=== PATIENT | male | born 1955 | race Caucasian/White ===

== ENCOUNTER 2021-12-13 21:24 | Inpatient (IN) ==
[2021-12-13] MEDS ORDERED: SODIUM CHLORIDE 0.9% 500 ML IV STA (21:31)
[2021-12-13] MEDS ORDERED: ONDANSETRON INJ 2 MG/ML 2 ML VIAL IV STA (21:31)
[2021-12-13] MEDS ORDERED: MoRPHine SULFATE 4 MG/ML 1 ML CARP\\VIAL IV PRN (21:31)
--- NOTE | 2021-12-13 21:35 | Emergency Department Note ---
Impression & Plan Closed fracture of left hip, Fall ED Provider Note NAME: MARLENY TUCKER AGE: 66 SEX: M : 1955 ARRIVES VIA: Ambulance INFORMANT: Patient, ED PROVIDER(S): Gio Biggs DO CHIEF COMPLAINT: Hip pain HPI: The patient is a 66-year-old male who presented to emergency department by ambulance for an evaluation of hip pain. Patient fell down 2 steps when he was walking into his basement. He landed onto his left side. He was unable to stand because of severe pain in his left hip. He denies having any other injury. He did not strike his head. He denies having any neck pain or back pain. He denies having any numbness in the leg. He states he is never hurt this leg in the past. The patient states that he has had no other injuries. He did not have syncope. The patient was brought to the emergency department via ALS. He was placed on a Casiano stretcher. He was also placed in a pelvic binder. The patient states that this significantly helped his pain. He did receive IV fluids prior to arrival. ROS: See above HPI for pertinent positives & negatives. A total of 10 systems reviewed and were otherwise negative. PAST MEDICAL HISTORY: See Below PAST SURGICAL HISTORY: See Below FAMILY HISTORY: See Below SOCIAL HISTORY: See Below HOME MEDICATIONS: See Below ALLERGIES: See Below VITALS: See Below PHYSICAL EXAMINATION: GENERAL: The patient is awake and alert. The patient is very anxious appearing. EYES: The conjunctivae are clear. The pupils are round and reactive. EARS, NOSE, MOUTH AND THROAT: The nose is without any evidence of any deformity. NECK: The neck is nontender and supple. RESPIRATORY: Normal respiratory effort is noted there is no evidence of wheezing rhonchi or rales CARDIOVASCULAR: Regular rate and rhythm noted there no murmurs rubs or gallops normal S1 normal S2. GASTROINTESTINAL: The abdomen is soft. Abdomen is nontender. BACK: No midline tenderness or or step-off noted range of motion in flexion extension as well as rotation no signs of muscle spasm noted MUSCULOSKELETAL/EXTREMITIES: The left hip is significantly tender to palpation. Left lower extremity is internally rotated and shortened. Pulses are symmetric in both feet. SKIN: There is no obvious evidence of any rash. There are no petechiae, pallor or cyanosis noted. NEUROLOGIC: Patient is awake alert and oriented x3. MEDICAL DECISION MAKING: The patient is a 66-year-old male who presented to the emergency department after a fall. The patient was walking down the steps when he fell landing on a step. He landed directly on his left hip. He was found to have signs of a subtrochanteric displaced hip fracture. He was treated with IV pain medication in the emergency department. He was reevaluated multiple times. I discussed t he patient's laboratory and radiographic studies with him. I also discussed his case with the on-call [facility]. They have agreed to evaluate the patient in the emergency department for further management and disposition. Likely the patient will require evaluation by orthopedic surgery for surgical management of this hip fracture. Triage Nursing notes reviewed. Prior medical records reviewed Vital Signs: reviewed and remarkable for elevated blood pressure. Differential diagnosis: Fracture, subluxation, dislocation, contusion, ligamentous injury, neurovascular, compartment syndrome, rhabdomyolysis, as well as other pathologies. ER treatment provided: See below Diagnostics interpreted by me: ECG: EKG was obtained in the emergency department. My interpretation is normal sinus rhythm at 88 bpm. There is no ectopy. There is no acute ST segment abnormalities noted. No previous tracing was available. Cardiac Monitoring: An order was placed for continuous cardiac monitoring. The monitor shows a rate of 91 bpm with sinus rhythm. Laboratory studies: As stated above and show below. Imaging studies: See below Consultation(s): I discussed this case with Dr. Daly who is on-call for the [facility] group. I discussed this case with Dr Noe who was numerical control drill press operator for [facility]. 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 (2/2 trauma) History of ankle surgery RT History of cholecystectomy History of colonoscopy History of esophagogastroduodenoscopy (EGD) History of herniorrhaphy INGUINAL History of open reduction and internal fixation (ORIF) procedure RT TIB/FIB Family History Other No significant family history Social History Smoking Status: Current every day smoker Tobacco Type: Cigarettes Cigarettes Per Day: 8 cigars daily/hx of tobacco x 30+ years; Second Hand Exposure: No; Hx Alcohol Use: Yes Alcohol type: beer Hx Substance Use: Yes Last Used Substance Other:: LAST USED YESTERDAY(ADVISED) Preferred Language: Samoan Communication Ability: Effective Cook Relief Required: No Beliefs That Will Affect Care: None marital status: Current Living Situation: Spouse current occupational status: employed Feels Safe at Home: Yes Assistive Devices: Glasses Allergies Allergies Allergy/AdvReac Type Severity Reaction Status Date / Time No Known Allergies Allergy Verified 10/30/19 09:17 Home Meds Home Medications Medication Instructions Recorded Confirmed finasteride 5 mg tablet 5 mg PO HS 10/14/19 11/12/19 lisinopril 20 mg tablet 20 mg PO HS 10/14/19 11/12/19 tamsulosin 0.4 mg capsule 0.4 mg PO HS 10/14/19 11/12/19 Results & Data (ED) Vital Signs Vital Signs - 24 hr 12/13/21 22:30 12/13/21 23:10 Temperature 37.0 C Temperature Source Oral Pulse Rate 88 92 H Respiratory Rate 20 20 Respiratory Effort / Characteristics Non-Labored Respiratory Depth Normal Blood Pressure 134/91 Blood Pressure Mean 105 Blood Pressure Position Lying Pulse Oximetry 98 98 Oxygen Delivery Method Room Air Room Air Sepsis Recent Fever Within 48 Hours No Sepsis New/Unexplained Change in Mental Status No Sepsis Action Taken by Nursing No Action Required Home Medications Current Medication List: was personally reviewed by me Laboratory Data Attestation: I reviewed the patient's lab results. Result diagrams: 12/13/21 Unknown 12/13/21 22:50 Lab Results 12/13/21 12/13/21 12/13/21 Range/Units 21:43 22:50 Unknown WBC 13.44 H (4.8-10.8) K/uL RBC 4.91 (4.7-6.1) M/uL Hgb 15.6 (14.0-18.0) g/dL Hct 44.1 (42-52) % MCV 89.8 (80-100) fL MCH 31.8 (25-34) pg MCHC 35.4 (32-36) g/dL RDW Std Deviation 47.9 H (36.4-46.3) fL RDW Coeff of Svetlana 14.7 H (11.5-14.5) % Plt Count 413 H (130-400) K/uL MPV 9.7 (7.4-10.4) fL Immature Gran % (Auto) 0.4 % Neut % (Auto) 75.1 % Lymph % (Auto) 14.2 % Dauphin % (Auto) 7.7 % Eos % (Auto) 2.2 % Baso % (Auto) 0.4 % Neut # (Auto) 10.10 H (1.4-6.5) K/uL Lymph # (Auto) 1.91 (1.2-3.4) K/uL Dauphin # (Auto) 1.03 H (0.11-0.59) K/uL Eos # (Auto) 0.29 (0-0.5) K/uL Baso # (Auto) 0.06 (0-0.2) K/uL Immature Gran # (Auto) 0.05 H (0.00-0.02) K/uL PT (9.0-12.0) Seconds INR (0.9-1.1) APTT (21.0-31.0) Seconds PTT Ratio Sodium 137 (136-145) mmol/L Potassium 3.9 (3.5-5.1) mmol/L Chloride 105 (98-107) mmol/L Carbon Dioxide 27 (21-32) mmol/L Anion Gap 5 (3-11) BUN 19 (6-23) mg/dl Creatinine 0.92 (0.6-1.4) mg/dl Est Cr Clr Drug Dosing 83.8 ml/min Est GFR ( Amer) 101.5 ml/min Est GFR (Non-Af Amer) 87.6 ml/min BUN/Creatinine Ratio 20.7 H (10-20) Glucose 115 H (70-99(Fasting)) mg/dl Calcium 8.6 (8.5-10.1) mg/dl Total Bilirubin 0.4 (0.2-1.0) mg/dl AST 26 (13-39) U/L ALT 21 (7-52) U/L Alkaline Phosphatase 156 H (34-104) U/L Troponin I < 0.03 (0-0.04) ng/ml Total Protein 6.2 (6.0-8.3) gm/dl Albumin 3.7 (3.4-5.0) gm/dl Globulin 2.5 (2.5-4.0) gm/dl Albumin/Globulin Ratio 1.5 (0.9-2) Lipase 100 H (11-82) U/L SARS-CoV-2, RNA, NAAT NEGATIVE (NEGATIVE) 12/13/21 Range/Units Unknown WBC (4.8-10.8) K/uL RBC (4.7-6.1) M/uL Hgb (14.0-18.0) g/dL Hct (42-52) % MCV (80-100) fL MCH (25-34) pg MCHC (32-36) g/dL RDW Std Deviation (36.4-46.3) fL RDW Coeff of Svetlana (11.5-14.5) % Plt Count (130-400) K/uL MPV (7.4-10.4) fL Immature Gran % (Auto) % Neut % (Auto) % Lymph % (Auto) % Dauphin % (Auto) % Eos % (Auto) % Baso % (Auto) % Neut # (Auto) (1.4-6.5) K/uL Lymph # (Auto) (1.2-3.4) K/uL Dauphin # (Auto) (0.11-0.59) K/uL Eos # (Auto) (0-0.5) K/uL Baso # (Auto) (0-0.2) K/uL Immature Gran # (Auto) (0.00-0.02) K/uL PT 9.7 (9.0-12.0) Seconds INR 1.0 (0.9-1.1) APTT 25.2 (21.0-31.0) Seconds PTT Ratio 1.0 Sodium (136-145) mmol/L Potassium (3.5-5.1) mmol/L Chloride (98-107) mmol/L Carbon Dioxide (21-32) mmol/L Anion Gap (3-11) BUN (6-23) mg/dl Creatinine (0.6-1.4) mg/dl Est Cr Clr Drug Dosing ml/min Est GFR ( Amer) ml/min Est GFR (Non-Af Amer) ml/min BUN/Creatinine Ratio (10-20) Glucose (70-99(Fasting)) mg/dl Calcium (8.5-10.1) mg/dl Total Bilirubin (0.2-1.0) mg/dl AST (13-39) U/L ALT (7-52) U/L Alkaline Phosphatase (34-104) U/L Troponin I (0-0.04) ng/ml Total Protein (6.0-8.3) gm/dl Albumin (3.4-5.0) gm/dl Globulin (2.5-4.0) gm/dl Albumin/Globulin Ratio (0.9-2) Lipase (11-82) U/L SARS-CoV-2, RNA, NAAT (NEGATIVE) Administered Medications Morphine Sulfate (Morphine Sulfate 4 Mg/Ml 1 Ml Carp\Vial) 4 mg IV Q30M PRN PRN Reason: Pain Stop: 12/27/21 21:30 Last Admin: 12/13/21 21:49 Dose: 4 mg Documented by: [id number] Discontinued Medications Sodium Chloride (Nss) 500 mls @ 999 mls/hr IV .Q31M STA Stop: 12/13/21 22:01 Last Infusion: 12/13/21 22:20 Dose: 0 mls/hr Documented by: [id number] Admin: 12/13/21 21:49 Dose: 999 mls/hr Documented by: [id number] Ondansetron HCl (Ondansetron Inj 2 Mg/Ml 2 Ml Vial) 4 mg IV NOW STA Stop: 12/13/21 21:32 Last Admin: 12/13/21 21:50 Dose: 4 mg Documented by: [id number] Imaging Data Attestation: I personally reviewed and interpreted this imaging study as follows: My Impression: 1 view chest x-ray was obtained in the emergency department. My interpretation is no free air no definite infiltrate. The radiograph is rotated significantly. The aorta was noted to be tortuous. This was a supine view. This was compared to a chest x-ray from October 222018. The positioning was different on the previous chest x-ray otherwise no definite changes were noted. X-rays x-rays of the left hip and pelvis were obtained in the emergency department. My interpretation is no definite pelvic fracture. Right hip is normal in appearance. Left hip reveals a subtrochanteric fracture with displacement and angulation. Discharge Plan Visit Data Chief Complaint: Fall Stated Complaint: FALL w/ L HIP PAIN - SHORTENING ROTATION ED Provider: Gio Biggs Discharge Problem: Closed fracture of left hip, Fall Patient Disposition: Being Evaluated by Hospitalist Forms Stand Alone Forms: My [facility] Prescriptions Prescriptions: No Action finasteride 5 mg tablet 5 mg PO HS RF: 0 lisinopril 20 mg tablet 20 mg PO HS RF: 0 tamsulosin 0.4 mg capsule 0.4 mg PO HS RF: 0 Referrals Referrals: Baron Vidal [Primary Care Provider] - Discharge Problem: Closed fracture of left hip Qualifiers: Encounter type: initial encounter Qualified Code(s): S72.002A - Fracture of unspecified part of neck of left femur, initial encounter for closed fracture Fall Qualifiers: Encounter type: initial encounter Qualified Code(s): W19.XXXA - Unspecified fall, initial encounter
[2021-12-13 21:41] LABS: Basophils # (auto) 0.06 K/uL (0-0.2); Basophils % (auto) 0.4 %; Eosinophils # (auto) 0.29 K/uL (0-0.5); Eosinophils % (auto) 2.2 %; Hematocrit (blood only) 44.1 % (42-52); Hemoglobin 15.6 g/dL (14.0-18.0); Immature Granulocytes # (auto) 0.05 K/uL (0.00-0.02); Immature Granulocytes % (auto) 0.4 %; Lymphocytes # (auto) 1.91 K/uL (1.2-3.4); Lymphocytes % (auto) 14.2 %; Mean Corpuscular Hemoglobin 31.8 pg (25-34); Mean Corpuscular Hgb Conc 35.4 g/dL (32-36); Mean Corpuscular Volume 89.8 fL (80-100); Mean Platelet Volume 9.7 fL (7.4-10.4); Monocytes # (auto) 1.03 K/uL (0.11-0.59); Monocytes % (auto) 7.7 %; Neutrophils % (auto) 75.1 %; Platelet Count 413 K/uL (130-400); RDW Coefficient of Variation 14.7 % (11.5-14.5); RDW Standard Deviation 47.9 fL (36.4-46.3); Red Blood Count 4.91 M/uL (4.7-6.1); White Blood Count 13.44 K/uL (4.8-10.8)
[2021-12-13 21:54] LABS: Partial Thromboplastin Time 25.2 Seconds (21.0-31.0); Prothrombin Time 9.7 Seconds (9.0-12.0)
--- NOTE | 2021-12-13 22:53 | History & Physical Report ---
Date of Service December 13, 2021 Assessment & Plan (1) Closed fracture of left hip: Plan: Status post fall down basement stairs landing on left side, resulting in subtrochanteric oblique appearing fracture of the left hip Consult orthopedics: Appreciate insight, recommendations with regards to reduction/fixation PT OT consulted Order vitamin D level Monitor CBC Insert Velazquez catheter ED provider spoke with on-call orthopedic physician, Dr. Noe, who said plan for procedure in a.m. N.p.o. now Pain: Tylenol 1g q8h, dilaudid 0.5mg IV q4h PRN until post procedure Based on mechanism of the fall, does not overtly appear to be a fragility fracture. Can consider DEXA as outpatient -- though no obvious risk factors for osteoporosis in this 66yoM. (2) High blood pressure: Plan: Blood pressure stable at this time, no evidence of acute blood loss anemia on labs Hold losartan for now given perioperative status (3) BPH without urinary obstruction: Plan: Noted, follows with [facility] Status post TURP in 2019 Is not on any home medications for this at present Check UA, as below (4) COPD (chronic obstructive pulmonary disease): Plan: With reported history of COPD per patient and his Continue home inhaler while here No active features of a COPD exacerbation at present (5) MDD (major depressive disorder): Plan: Continue home medications, managed by local psychiatrist --Prozac, olanzapine, perphenazine (6) Confusion: Plan: At the bedside, patient's reports that he has been somewhat more low energy and intermittently confused over the last several days; she also notes that he is fallen over the last couple days In the past, she says that this is been consistent with UTI for him per Patient was fully alert and oriented, answered questions appropriately throughout her discussionno evidence of encephalopathy at my time of exam CBC is revealing for mild leukocytosis in the setting of recent hip fracture Obtain BMP, urinalysis as well as urine culture Chest x-ray not revealing for any infectious process Given recent falls over the last several days, as well as endorsing that he hit his head during today's fall, will obtain noncontrast head CT Hold from antibiotics at this time until clinical picture is clear, urinalysis/BMP is obtained PT, OT ordered as aboveappreciate any incident recommendations moving forward after discharge Plan: Code: DNR/DNIconfirmed at the bedside with both patient and PPX: SCDs until procedure Diet: NPO for procedure tomorrow Dispo: MS History of Present Illness Primary Care Provider: Baron Huston is a 66-year-old male with a history of HTN, BPH, COPD, MDD who presented to [facility] following a fall down 2 icy steps onto his left side. He noted that because of the pain, he was having difficulty getting up and was unable to walk. He said he hit his head, but "it didn't hurt" and denies LOC. In route, he was put into a pelvic binder, which aided with some of his pain. In speaking with his , who is at the bedside, she notes that patient has been reportedly more confusedappearing over the last several days; she notes that he has fallen several times, which is not typical for him. She says that this is happened in the past when he has gotten UTI. They deny any fevers, chills, night sweats. Denies any nausea or vomiting. Denies any urinary symptoms, including dysuria/frequency/urgency. No pulmonary or chest symptoms. No recent or major changes in medications. Medications were reviewed, which include: losartan, wingspan, fluoxetine, Wellbutrin, perphenazine, Symbicort. Socially, he does endorse utilizing about half a pack per day "for as long as I can remember." He was treated for COPD and uses Symbicort daily; there is recently been discussions to upgrade this to another inhaler. Denies any recent or past use of alcohol. Denies any use of any recreational drugs. Upon arrival in the ER, vital signs were found to be normal with HR in low 90s. Laboratories were significant for a mildly elevated white count to 13.4 with neutrophilic predominance but no evidence of anemia, BMP normal. ALP mildly el evated at 156. Lipase noted at 100. INR normal -- not on anticoagulation. X-ray of the hip did demonstrate a dislocated, oblique-appearing subtrochanteric fracture of the left femur. Chest x-ray was not significant for any acute abnormalities. Covid negative. Emergency provider spoke with the on-call orthopedist, who did indicate hey will proceed with the surgery likely tomorrow. Allergies Allergy/AdvReac Type Severity Reaction Status Date / Time No Known Allergies Allergy Verified 12/14/21 00:15 Home Medications Medication Instructions Recorded Confirmed Type budesonide-formoterol HFA 160 2 puff INHALATION BID 12/14/21 12/14/21 History mcg-4.5 mcg/actuation aerosol inhaler (Symbicort) bupropion HCl 300 mg 24 hr tablet, 300 mg PO QAM 12/14/21 12/14/21 History extended release fluoxetine 20 mg capsule 60 mg PO DAILY 12/14/21 12/14/21 History losartan 25 mg tablet 0 mg PO DAILY 12/14/21 12/14/21 History olanzapine 10 mg tablet 10 mg PO HS 12/14/21 12/14/21 History perphenazine 16 mg tablet 8 mg PO HS 12/14/21 12/14/21 History 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 (2/2 trauma) History of ankle surgery RT History of cholecystectomy History of colonoscopy History of esophagogastroduodenoscopy (EGD) History of herniorrhaphy INGUINAL History of open reduction and internal fixation (ORIF) procedure RT TIB/FIB Family History Other No significant family history Social History Smoking Status: Current every day smoker Tobacco Type: Cigarettes Cigarettes Per Day: 1/2 ppd; Second Hand Exposure: No; Do You Dip or Chew Tobacco: No; Tobacco Cessation Education Requested by Patient: No Hx Alcohol Use: No Hx Substance Use: No Preferred Language: Namibian Communication Ability: Effective Aerial Erector Required: No Beliefs That Will Affect Care: None marital status: Current Living Situation: Spouse current occupational status: employed How many Children do You have: 2 Other Information That Helps Us Care for You: No Feels Safe at Home: Yes Safety Concerns: Feels Safe At This Time Assistive Devices: None Review of Systems Review of Systems: as per hpi Physical Exam Physical Exam: General: Tired but well-appearing 66-year-old gentleman no acute distress HEENT: NCAT. - Eyes - Sclera are white, anicteric, and without injection. PERRL. - Mouth - MMM with no tonsillar edema or exudates. - Neck - supple and without LAD. Thyroid - no appreciable goiter or nodules. Cardiac: Normal rate and regular rhythm; S1 and S2 present with no murmurs, rubs, or gallops. Pulmonary: Good respiratory effort with symmetric expansion of the chest. No use of accessory muscles. Lungs were clear to auscultation bilaterally with no crackles or wheezes. Abdominal: Normoactive bowel sounds. Abdomen was soft, nondistended, and non- tender to palpation. Extremities: Hip is in a brace at this time. There is protuberance appreciated over the left hip but is not associated with any pain. Ankle and toe range if motion are full. Sensation to light touch is grossly intact bilaterally. Dorsalis pedis pulse 2+ bilaterally. Capillary refill under 3 seconds. Psych: Well-developed, well-nourished, appropriately dressed for occasion. Behavior is cooperative and appropriate. Affect is WNL. Insight is appropriate. Supervising Physician Co-Signing Physician Notes Patient seen and examined, chart reviewed, case discussed with Dr. Clark and I agree with the assessent and plan as above. Patient fell, sustained left proximal femur fracture with subtrochanteric extension NV intact on exam. No bruising Pain control, antiemetics NPO Ortho consultation for repair Remainder as above Resident Activity Tracking Resident Involvement: Resident Care Provided Care Provided: Adult Hospital Medicine (1) Closed fracture of left hip Encounter type: initial encounter Qualified Code(s): S72.002A - Fracture of unspecified part of neck of left femur, initial encounter for closed fracture
[2021-12-13] MEDS ORDERED: ACETAMINOPHEN 1000 MG/100 ML IV IV PRN (23:11)
[2021-12-13 23:24] LABS: Alanine Aminotransferase 21 U/L (7-52); Albumin Globulin Ratio 1.5 (0.9-2); Albumin Level 3.7 gm/dl (3.4-5.0); Alkaline Phosphatase 156 U/L (34-104); Anion Gap 5 (3-11); Aspartate Aminotransferase 26 U/L (13-39); BUN Creatinine Ratio 20.7 (10-20); Bilirubin,Total 0.4 mg/dl (0.2-1.0); Blood Urea Nitrogen 19 mg/dl (6-23); Calcium 8.6 mg/dl (8.5-10.1); Carbon Dioxide 27 mmol/L (21-32); Chloride 105 mmol/L (98-107); Creatinine Clr Calc Pharmacy 83.8 ml/min; Est GFR (African American) 101.5 ml/min; Est GFR (Non-African American) 87.6 ml/min; Globulin 2.5 gm/dl (2.5-4.0); Glucose 115 mg/dl (70-99(Fasting)); Lipase 100 U/L (11-82); Potassium 3.9 mmol/L (3.5-5.1); Sodium 137 mmol/L (136-145); Total Protein 6.2 gm/dl (6.0-8.3)
[2021-12-13 23:25] LABS: Troponin I < 0.03 ng/ml (0-0.04)
[2021-12-14] MEDS: HYDROmorphone INJ 0.5 MG/0.5 ML SYR IV PRN ×3 (00:19→20:42)
[2021-12-14 02:16] LABS: BUN Creatinine Ratio 20.6 (10-20); Calcium 8.6 mg/dl (8.5-10.1); Creatinine Clr Calc Pharmacy 79.4 ml/min; Est GFR (African American) 95.2 ml/min; Est GFR (Non-African American) 82.2 ml/min; Potassium 4.2 mmol/L (3.5-5.1)
[2021-12-14 06:24] LABS: Basophils # (auto) 0.03 K/uL (0-0.2); Basophils % (auto) 0.2 %; Eosinophils # (auto) 0.03 K/uL (0-0.5); Eosinophils % (auto) 0.2 %; Hematocrit (blood only) 36.6 % (42-52); Hemoglobin 12.8 g/dL (14.0-18.0); Immature Granulocytes # (auto) 0.06 K/uL (0.00-0.02); Immature Granulocytes % (auto) 0.5 %; Lymphocytes # (auto) 1.19 K/uL (1.2-3.4); Lymphocytes % (auto) 9.4 %; Mean Corpuscular Hemoglobin 31.2 pg (25-34); Mean Corpuscular Volume 89.3 fL (80-100); Mean Platelet Volume 9.4 fL (7.4-10.4); Monocytes # (auto) 1.26 K/uL (0.11-0.59); Monocytes % (auto) 9.9 %; Neutrophils # (auto) 10.15 K/uL (1.4-6.5); Neutrophils % (auto) 79.8 %; Platelet Count 338 K/uL (130-400); RDW Coefficient of Variation 14.8 % (11.5-14.5); RDW Standard Deviation 48.5 fL (36.4-46.3); White Blood Count 12.72 K/uL (4.8-10.8)
[2021-12-14 06:39] LABS: BUN Creatinine Ratio 20.2 (10-20); Calcium 8.5 mg/dl (8.5-10.1); Creatinine Clr Calc Pharmacy 71.8 ml/min; Est GFR (African American) 82.7 ml/min; Est GFR (Non-African American) 71.4 ml/min; Potassium 4.4 mmol/L (3.5-5.1)
[2021-12-14 06:46] LABS: Appearance Urine Cloudy (Clear); Bilirubin Urine Negative (Negative); Blood Urine 2+ (Negative); Color Urine Dark Yellow; Epithelial Cell Urine Auto 0-5 /lpf (0-5); Glucose Urine UA Negative (Negative); Ketones Urine Trace (Negative); Leukocyte Esterase Urine Trace (Negative); Nitrite Urine Positive (Negative); Protein Urine 1+ (Negative); Specific Gravity Urine 1.028 (1.000-1.030); Urobilinogen Urine Negative (Negative); WBC Urine Automated >30 /hpf (0-5); pH Urine 5.5 (4.5-7.5)
--- NOTE | 2021-12-14 06:49 | CT Scan Report ---
CT OF THE HEAD WITHOUT CONTRAST CLINICAL HISTORY: head trauma, recent falls at home, confusion COMPARISON STUDY: No previous studies for comparison. CT DOSE: 789.33 mGy.cm TECHNIQUE: Helical axial images of the head were obtained without IV contrast. Automated exposure con trol was utilized for the study. A dose lowering technique was utilized adhering to the principles o f ALARA. FINDINGS: No acute intracranial hemorrhage, midline shift or mass effect is present. White matter hyp odensity suggests small vessel disease. The ventricular system is unremarkable. The basal cisterns ar e patent. No extra-axial collections are present. There are no findings to suggest acute dural sinus thrombosis or acute territorial infarct. No significant calvarial abnormalities are present. Visualiz ed portions of the sinuses and mastoid air cells are clear. IMPRESSION: 1. No acute intracranial findings. 2. No acute calvarial fracture. ACT 112: Negative or not required by law. Electronically signed by: Mike Gifford M.D. 12/14/2021 6:47 AM
[2021-12-14 07:12] LABS: Mucus Urine Present (None Prsent)
[2021-12-14 07:14] LABS: Bacteria Urine Automated 1+ (Negative)
--- NOTE | 2021-12-14 07:44 | Medical Student Progress Note ---
Date of Service December 14, 2021 Assessment & Plan (1) Closed fracture of left hip: Plan: Betzaida is a 66 yo M with a history of COPD, HTN, BPH, MDD, who was transported to [facility] via ALS following a fall down 2 icy steps and landing on his left side.He received IV fluids prior to arrival. Unremarkable EKG, Head CT w/o contrast. X-ray Hip/Pelvis positive for closed fracture of L hip. (1) Closed fracture of left hip - status post fall 2 icy steps (+) landing on left side and hitting head (-) visible head trauma, LOC - X-ray Hip/Pelvis: L hip fracture with impaction and angulation - Ortho consult: Pt will require femoral nailing. Plan for surgery this evening. - Monitor CBC for internal bleeding - Pain: Acetaminophen 1g q8, Dilaudid 0.5mg IV q4h PRN until post procedure - Diet: NPO - Velazquez catheter - PT/OT ordered (2) Confusion - reported by ; she noted that pt has had decreased energy, increased confusion, and has fallen over the last couple days + stated that this is consistent with prior UTIs. - pt does not appear confused at this time - Unremarkable Head CT w/o contrast, Chest X-Ray - UA: Suspicious for UTI given cloudy, +nitrite, + leuk esterase, + WBC, + bacteria; culture still pending - In the setting of no current urinary sx, will not treat what appears to be asymptomatic bacteruria. (3) Dizziness - pt reports 2wk hx of dizziness upon standing up - Unremarkable. EKG, Head CT w/o contrast, Chest X-Ray - suspecting for orthostatic etiology; consider exacerbation by Olanzapine, Perphenazine, infection. - report of pt taking Tamsulosin, however pt reports he has not been taking this medication for some time. (4) COPD - continue Breo Ellipta, home inhaler (5) Hypertension - stable, 113/79 this AM - continue Losartan (6) BPH - not currently on medications - previously was on Finasteride and Tamsulosin, unsure why it was stopped. - Potentially related to dizziness episode. (7) MDD - continue home meds (olanzapine, fluoxetine, wellbutrin, perphenazine) Code: DNR/DNI DVT ppx: SCDs until procedure Diet: NPO for procedure Encounter type: initial encounter Qualified Code(s): S72.002A - Fracture of unspecified part of neck of left femur, initial encounter for closed fracture Admission and Anticipated Discharge Date Admission Date: December 13, 2021 Supervising Attestation Medical Student Supervision Note: I was personally present during medical student patient encounter and independently interviewed and examined the patient and verified the casillas history and physical, reviewed labs and image studies, discussed the case with Mariangel Chavez and agree with the findings and care plan. Mechanical fall with hip fracture - for repair later today. Anemia - ? sec to fracture. recheck stat h/h Recent h/o confusion, chronic indwelling catherter and abnormal UA - cloudy urine - start rocephin, while await culture. Chronic history of dizziness sec to orthostasis - monitor. vitamin D def - replace once taking PO Chronic COPD - stable on home meds. Subjective Patient was seen at bedside, resting comfortable. His pain is currently 4/10. Pt is aware of XRAY, CT results, and plan for surgery tomorrow. He did not appear confused, had good recall of events and answered all questions appropriately. He stated that he has started feeling dizzy/out of balance upon standing up, causing him to fall approx. 10x in the past couple of weeks. He denies syncope d uring these falls. Pt endorses one episode of emesis last night and headache (albeit typical for him). Otherwise, he denies SOB, dizziness, chest pain, nausea. Review of Systems Respiratory: no cough, no dyspnea and no wheezing Cardiovascular: no chest pain, no palpitations and no syncope Gastrointestinal: no abdominal pain and no nausea Physical Exam Respiratory: + prolonged expiratory phase Expiratory wheezes. Normal respiratory effort. Cardiovascular: RRR, no murmur, no edema Gastrointestinal (Abdomen): normal bowel sounds, soft, nontender, no hepatosplenomegaly Musculoskeletal: Shortened, externally rotated LLE. Normal ankle, toe ROM b/l. Ped pulses equal b/l. Psychiatric: A+Ox3, euthymic affect Results & Data ([facility]) Vital Signs (Past 12 Hours) Vital Signs Temp Pulse Pulse Resp BP BP Pulse Ox 12/14/21 01:25 124/86 12/14/21 00:45 36.3 C L 101 H 20 151/114 H 96 12/14/21 00:19 98 H 18 115/82 97 12/13/21 23:10 92 H 20 98 12/13/21 22:30 37.0 C 88 20 134/91 98 Laboratory Results 12/14/21 12/14/21 12/14/21 Range/Units 06:20 05:58 05:58 WBC (4.8-10.8) K/uL RBC (4.7-6.1) M/uL Hgb (14.0-18.0) g/dL Hct (42-52) % MCV (80-100) fL MCH (25-34) pg MCHC (32-36) g/dL RDW Std Deviation (36.4-46.3) fL RDW Coeff of Svetlana (11.5-14.5) % Plt Count (130-400) K/uL MPV (7.4-10.4) fL Immature Gran % (Auto) % Neut % (Auto) % Lymph % (Auto) % [place] % (Auto) % Eos % (Auto) % Baso % (Auto) % Neut # (Auto) (1.4-6.5) K/uL Lymph # (Auto) (1.2-3.4) K/uL [place] # (Auto) (0.11-0.59) K/uL Eos # (Auto) (0-0.5) K/uL Baso # (Auto) (0-0.2) K/uL Immature Gran # (Auto) (0.00-0.02) K/uL PT (9.0-12.0) Seconds INR (0.9-1.1) APTT (21.0-31.0) Seconds PTT Ratio Sodium (136-145) mmol/L Potassium (3.5-5.1) mmol/L Chloride (98-107) mmol/L Carbon Dioxide (21-32) mmol/L Anion Gap (3-11) BUN (6-23) mg/dl Creatinine (0.6-1.4) mg/dl Est Cr Clr Drug Dosing ml/min Est GFR ( Amer) ml/min Est GFR (Non-Af Amer) ml/min BUN/Creatinine Ratio (10-20) Glucose (70-99(Fasting)) mg/dl Calcium (8.5-10.1) mg/dl Total Bilirubin (0.2-1.0) mg/dl AST (13-39) U/L ALT (7-52) U/L Alkaline Phosphatase (34-104) U/L Troponin I (0-0.04) ng/ml Total Protein (6.0-8.3) gm/dl Albumin (3.4-5.0) gm/dl Globulin (2.5-4.0) gm/dl Albumin/Globulin Ratio (0.9-2) Lipase (11-82) U/L 25-OH Vitamin D Total (30-100) ng/ml Procalcitonin Pending Urine Color Dark Yellow Urine Appearance Cloudy A (Clear) Urine pH 5.5 (4.5-7.5) Ur Specific [place] 1.028 (1.000-1.030) Urine Protein 1+ H (Negative) Urine Glucose (UA) Negative (Negative) Urine Ketones Trace H (Negative) Urine Blood 2+ H (Negative) Urine Nitrite Positive A (Negative) Urine Bilirubin Negative (Negative) Urine Urobilinogen Negative (Negative) Ur Leukocyte Esterase Trace H (Negative) Urine WBC (Auto) >30 H (0-5) /hpf Urine RBC (Auto) 10-30 H (0-4) /hpf U Hyaline Cast (Auto) 5-10 H (0-5) /lpf U Epithel Cells (Auto) 0-5 (0-5) /lpf Urine Bacteria (Auto) 1+ H (Negative) Urine Mucus Present A (None Prsent) Urine Yeast Not Reportable Hepatitis C Ab Screen Pending SARS-CoV-2, RNA, NAAT (NEGATIVE) 12/14/21 12/14/21 12/14/21 Range/Units 05:58 05:58 05:58 WBC 12.72 H (4.8-10.8) K/uL RBC 4.10 L (4.7-6.1) M/uL Hgb 12.8 L (14.0-18.0) g/dL Hct 36.6 L (42-52) % MCV 89.3 (80-100) fL MCH 31.2 (25-34) pg MCHC 35.0 (32-36) g/dL RDW Std Deviation 48.5 H (36.4-46.3) fL RDW Coeff of Svetlana 14.8 H (11.5-14.5) % Plt Count 338 (130-400) K/uL MPV 9.4 (7.4-10.4) fL Immature Gran % (Auto) 0.5 % Neut % (Auto) 79.8 % Lymph % (Auto) 9.4 % [place] % (Auto) 9.9 % Eos % (Auto) 0.2 % Baso % (Auto) 0.2 % Neut # (Auto) 10.15 H (1.4-6.5) K/uL Lymph # (Auto) 1.19 L (1.2-3.4) K/uL [place] # (Auto) 1.26 H (0.11-0.59) K/uL Eos # (Auto) 0.03 (0-0.5) K/uL Baso # (Auto) 0.03 (0-0.2) K/uL Immature Gran # (Auto) 0.06 H (0.00-0.02) K/uL PT (9.0-12.0) Seconds INR (0.9-1.1) APTT (21.0-31.0) Seconds PTT Ratio Sodium 137 (136-145) mmol/L Potassium 4.4 (3.5-5.1) mmol/L Chloride 107 (98-107) mmol/L Carbon Dioxide 24 (21-32) mmol/L Anion Gap 6 (3-11) BUN 22 (6-23) mg/dl Creatinine 1.09 (0.6-1.4) mg/dl Est Cr Clr Drug Dosing 71.8 ml/min Est GFR ( Amer) 82.7 ml/min Est GFR (Non-Af Amer) 71.4 ml/min BUN/Creatinine Ratio 20.2 H (10-20) Glucose 144 H (70-99(Fasting)) mg/dl Calcium 8.5 (8.5-10.1) mg/dl Total Bilirubin (0.2-1.0) mg/dl AST (13-39) U/L ALT (7-52) U/L Alkaline Phosphatase (34-104) U/L Troponin I (0-0.04) ng/ml Total Protein (6.0-8.3) gm/dl Albumin (3.4-5.0) gm/dl Globulin (2.5-4.0) gm/dl Albumin/Globulin Ratio (0.9-2) Lipase (11-82) U/L 25-OH Vitamin D Total 7.5 L (30-100) ng/ml Procalcitonin Urine Color Urine Appearance (Clear) Urine pH (4.5-7.5) Ur Specific [place] (1.000-1.030) Urine Protein (Negative) Urine Glucose (UA) (Negative) Urine Ketones (Negative) Urine Blood (Negative) Urine Nitrite (Negative) Urine Bilirubin (Negative) Urine Urobilinogen (Negative) Ur Leukocyte Esterase (Negative) Urine WBC (Auto) (0-5) /hpf Urine RBC (Auto) (0-4) /hpf U Hyaline Cast (Auto) (0-5) /lpf U Epithel Cells (Auto) (0-5) /lpf Urine Bacteria (Auto) (Negative) Urine Mucus (None Prsent) Urine Yeast Hepatitis C Ab Screen SARS-CoV-2, RNA, NAAT (NEGATIVE) 12/14/21 12/13/21 12/13/21 Range/Units 01:25 Unknown Unknown WBC 13.44 H (4.8-10.8) K/uL RBC 4.91 (4.7-6.1) M/uL Hgb 15.6 (14.0-18.0) g/dL Hct 44.1 (42-52) % MCV 89.8 (80-100) fL MCH 31.8 (25-34) pg MCHC 35.4 (32-36) g/dL RDW Std Deviation 47.9 H (36.4-46.3) fL RDW Coeff of Svetlana 14.7 H (11.5-14.5) % Plt Count 413 H (130-400) K/uL MPV 9.7 (7.4-10.4) fL Immature Gran % (Auto) 0.4 % Neut % (Auto) 75.1 % Lymph % (Auto) 14.2 % [place] % (Auto) 7.7 % Eos % (Auto) 2.2 % Baso % (Auto) 0.4 % Neut # (Auto) 10.10 H (1.4-6.5) K/uL Lymph # (Auto) 1.91 (1.2-3.4) K/uL [place] # (Auto) 1.03 H (0.11-0.59) K/uL Eos # (Auto) 0.29 (0-0.5) K/uL Baso # (Auto) 0.06 (0-0.2) K/uL Immature Gran # (Auto) 0.05 H (0.00-0.02) K/uL PT 9.7 (9.0-12.0) Seconds INR 1.0 (0.9-1.1) APTT 25.2 (21.0-31.0) Seconds PTT Ratio 1.0 Sodium 135 L (136-145) mmol/L Potassium 4.2 (3.5-5.1) mmol/L Chloride 106 (98-107) mmol/L Carbon Dioxide 22 (21-32) mmol/L Anion Gap 7 (3-11) BUN 20 (6-23) mg/dl Creatinine 0.97 (0.6-1.4) mg/dl Est Cr Clr Drug Dosing 79.4 ml/min Est GFR ( Amer) 95.2 ml/min Est GFR (Non-Af Amer) 82.2 ml/min BUN/Creatinine Ratio 20.6 H (10-20) Glucose 178 H (70-99(Fasting)) mg/dl Calcium 8.6 (8.5-10.1) mg/dl Total Bilirubin (0.2-1.0) mg/dl AST (13-39) U/L ALT (7-52) U/L Alkaline Phosphatase (34-104) U/L Troponin I (0-0.04) ng/ml Total Protein (6.0-8.3) gm/dl Albumin (3.4-5.0) gm/dl Globulin (2.5-4.0) gm/dl Albumin/Globulin Ratio (0.9-2) Lipase (11-82) U/L 25-OH Vitamin D Total (30-100) ng/ml Procalcitonin Urine Color Urine Appearance (Clear) Urine pH (4.5-7.5) Ur Specific [place] (1.000-1.030) Urine Protein (Negative) Urine Glucose (UA) (Negative) Urine Ketones (Negative) Urine Blood (Negative) Urine Nitrite (Negative) Urine Bilirubin (Negative) Urine Urobilinogen (Negative) Ur Leukocyte Esterase (Negative) Urine WBC (Auto) (0-5) /hpf Urine RBC (Auto) (0-4) /hpf U Hyaline Cast (Auto) (0-5) /lpf U Epithel Cells (Auto) (0-5) /lpf Urine Bacteria (Auto) (Negative) Urine Mucus (None Prsent) Urine Yeast Hepatitis C Ab Screen SARS-CoV-2, RNA, NAAT (NEGATIVE) 12/13/21 12/13/21 Range/Units 22:50 21:43 WBC (4.8-10.8) K/uL RBC (4.7-6.1) M/uL Hgb (14.0-18.0) g/dL Hct (42-52) % MCV (80-100) fL MCH (25-34) pg MCHC (32-36) g/dL RDW Std Deviation (36.4-46.3) fL RDW Coeff of Svetlana (11.5-14.5) % Plt Count (130-400) K/uL MPV (7.4-10.4) fL Immature Gran % (Auto) % Neut % (Auto) % Lymph % (Auto) % [place] % (Auto) % Eos % (Auto) % Baso % (Auto) % Neut # (Auto) (1.4-6.5) K/uL Lymph # (Auto) (1.2-3.4) K/uL [place] # (Auto) (0.11-0.59) K/uL Eos # (Auto) (0-0.5) K/uL Baso # (Auto) (0-0.2) K/uL Immature Gran # (Auto) (0.00-0.02) K/uL PT (9.0-12.0) Seconds INR (0.9-1.1) APTT (21.0-31.0) Seconds PTT Ratio Sodium 137 (136-145) mmol/L Potassium 3.9 (3.5-5.1) mmol/L Chloride 105 (98-107) mmol/L Carbon Dioxide 27 (21-32) mmol/L Anion Gap 5 (3-11) BUN 19 (6-23) mg/dl Creatinine 0.92 (0.6-1.4) mg/dl Est Cr Clr Drug Dosing 83.8 ml/min Est GFR ( Amer) 101.5 ml/min Est GFR (Non-Af Amer) 87.6 ml/min BUN/Creatinine Ratio 20.7 H (10-20) Glucose 115 H (70-99(Fasting)) mg/dl Calcium 8.6 (8.5-10.1) mg/dl Total Bilirubin 0.4 (0.2-1.0) mg/dl AST 26 (13-39) U/L ALT 21 (7-52) U/L Alkaline Phosphatase 156 H (34-104) U/L Troponin I < 0.03 (0-0.04) ng/ml Total Protein 6.2 (6.0-8.3) gm/dl Albumin 3.7 (3.4-5.0) gm/dl Globulin 2.5 (2.5-4.0) gm/dl Albumin/Globulin Ratio 1.5 (0.9-2) Lipase 100 H (11-82) U/L 25-OH Vitamin D Total (30-100) ng/ml Procalcitonin Urine Color Urine Appearance (Clear) Urine pH (4.5-7.5) Ur Specific [place] (1.000-1.030) Urine Protein (Negative) Urine Glucose (UA) (Negative) Urine Ketones (Negative) Urine Blood (Negative) Urine Nitrite (Negative) Urine Bilirubin (Negative) Urine Urobilinogen (Negative) Ur Leukocyte Esterase (Negative) Urine WBC (Auto) (0-5) /hpf Urine RBC (Auto) (0-4) /hpf U Hyaline Cast (Auto) (0-5) /lpf U Epithel Cells (Auto) (0-5) /lpf Urine Bacteria (Auto) (Negative) Urine Mucus (None Prsent) Urine Yeast Hepatitis C Ab Screen SARS-CoV-2, RNA, NAAT NEGATIVE (NEGATIVE)
[2021-12-14] MEDS: FLUoxetine HCL 20 MG CAP PO SCH ×2 (08:09→08:54)
[2021-12-14] MEDS: buPROPion XL 300 MG TABCR PO SCH ×2 (08:09→08:53)
[2021-12-14] MEDS: FLUTICASONE/VILANTEROL 200/25MCG 14 PUFFS/INHALER INH SCH (08:09)
--- NOTE | 2021-12-14 08:51 | XRay Report ---
XR chest 1V portable CLINICAL HISTORY: Atypical chest pain TECHNIQUE: Single frontal radiograph of the chest was obtained. Comparison: Comparison is made to chest one view 10/22/20202018 FINDINGS: No lines and tubes are seen. The cardiomediastinal silhouette is normal. The lungs are clear. No evid ence of pleural effusion or pneumothorax. IMPRESSION: No acute chest disease. ACT 112: Negative or not required by law. Electronically signed by: Puneet Rose M.D. 12/14/2021 8:50 AM
--- NOTE | 2021-12-14 08:59 | XRay Report ---
XR hip LT 2V w pelvis CLINICAL HISTORY: fall TECHNIQUE: 2 views of the left hip and single frontal view of the pelvis were obtained. Comparison: None available at the time of this dictation. FINDINGS: A femoral neck fracture is seen with impaction and apex lateral angulation of the fragments. The alig nment is anatomic. Joint spaces are well-preserved. Hernia mesh is seen in the right lower pelvis. IMPRESSION: Status post left femoral neck fracture. ACT 112: Negative or not required by law. Electronically signed by: Puneet Rose M.D. 12/14/2021 8:58 AM
[2021-12-14] MEDS: ACETAMINOPHEN 1000 MG/100 ML IV IV SCH ×2 (09:10→18:02)
--- NOTE | 2021-12-14 10:22 | Orthopedic Consultation ---
Date of Consultation December 14, 2021 Assessment & Plan (1) Closed fracture of left hip: Left proximal femur fracture with subtrochanteric extension lateral aspect Patient will require femoral nailing. Case has been discussed with Dr. Noe. Patient had a full breakfast this morning and will not be able to have surgery for at least 8 hours. Plan for surgery later this evening. I have discussed the case with Dr. Ramos. Patient is medically cleared for surgery. History of Present Illness Reason for Consultation: Left proximal femur fracture reverse obliquity with subtrochanteric extension. Attending Physician: Bee Ramos MD History of Present Illness Patient is a 66-year-old male with a history of HTN, BPH, COPD, MDD who presented to [facility] following a fall down 2 icy steps onto his left side. He noted that because of the pain, he was having difficulty getting up and was unable to walk. He said he hit his head, but "it didn't hurt" and denies LOC. In route, he was put into a pelvic binder, which aided with some of his pain. Patient denies any lightheadedness, shortness of breath, chest pain prior to the fall or after. From his current history, the apparently the patient has been a little bit more confused over the last several days and has had several falls. He was brought to the emergency room here at [facility] and was seen by the staff. X-rays were taken and was found that he had a subtrochanteric femur fracture of the left femur. We have been asked to see him for this. Allergies Allergy/AdvReac Type Severity Reaction Status Date / Time No Known Allergies Allergy Verified 12/14/21 00:15 Home Medications Medication Instructions Recorded Confirmed Type budesonide-formoterol HFA 160 2 puff INHALATION BID 12/14/21 12/14/21 History mcg-4.5 mcg/actuation aerosol inhaler (Symbicort) bupropion HCl 300 mg 24 hr tablet, 300 mg PO QAM 12/14/21 12/14/21 History extended release fluoxetine 20 mg capsule 60 mg PO DAILY 12/14/21 12/14/21 History losartan 25 mg tablet 0 mg PO DAILY 12/14/21 12/14/21 History olanzapine 10 mg tablet 10 mg PO HS 12/14/21 12/14/21 History perphenazine 16 mg tablet 8 mg PO HS 12/14/21 12/14/21 History Patient History Medical History BPH without urinary obstruction History of GI bleed 2014 r/t ASA use Hypertension Urethral stricture Surgical History 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 (2/2 trauma) History of ankle surgery RT History of cholecystectomy History of colonoscopy History of esophagogastroduodenoscopy (EGD) History of herniorrhaphy INGUINAL History of open reduction and internal fixation (ORIF) procedure RT TIB/FIB Family History Other No significant family history Social History Smoking Status: Current every day smoker Tobacco Type: Cigarettes Cigarettes Per Day: 1/2 ppd; Second Hand Exposure: No; Do You Dip or Chew Tobacco: No; Tobacco Cessation Education Requested by Patient: No Hx Alcohol Use: No Hx Substance Use: No Preferred Language: Azeri Communication Ability: Effective Vice President [employer] Communications Required: No Beliefs That Will Affect Care: None marital status: Current Living Situation: Spouse current occupational status: employed How many Children do You have: 2 Other Information That Helps Us Care for You: No Feels Safe at Home: Yes Safety Concerns: Feels Safe At This Time Assistive Devices: None Physical Exam Physical Exam: Examination, the patient is a 66-year-old white male who appears his stated age. He is in no acute distress, pleasant and cooperative. Examination of his left lower extremity, it is shortened and externally rotated compared to the right. He has his knee in a slight flexed position. No attempts were made to do range of motion of the left hip or knee secondary to subtrochanteric femur fracture. His knee is nontender on palpation. There is no swelling. He has good range of motion of his left ankle and toes. Sensation is intact. He is nontender of the right lower extremity at this time at the hip, knee, ankle. Range of motion intact. Upper extremities are unaffected and he is nontender at the shoulders, elbows, and wrists. Range of motion is intact. He has no gross motor or sensory loss seen at this time other than limited range of motion of the left lower extremity secondary to fracture. Distal pulses are equal bilaterally of the upper extremities. Results & Data ([facility]) Vital Signs (Past 12 Hours) Vital Signs Temp Pulse Pulse Resp BP BP Pulse Ox 12/14/21 08:06 36.5 C 93 H 16 113/79 97 12/14/21 01:25 124/86 12/14/21 00:45 36.3 C L 101 H 20 151/114 H 96 12/14/21 00:19 98 H 18 115/82 97 12/13/21 23:10 92 H 20 98 12/13/21 22:30 37.0 C 88 20 134/91 98 Laboratory Results Laboratory Results WBC 12.72 K/uL (4.8-10.8) H 12/14/21 05:58 RBC 4.10 M/uL (4.7-6.1) L 12/14/21 05:58 Hgb 12.8 g/dL (14.0-18.0) L 12/14/21 05:58 Hct 36.6 % (42-52) L 12/14/21 05:58 MCV 89.3 fL (80-100) 12/14/21 05:58 MCH 31.2 pg (25-34) 12/14/21 05:58 MCHC 35.0 g/dL (32-36) 12/14/21 05:58 RDW Std Deviation 48.5 fL (36.4-46.3) H 12/14/21 05:58 RDW Coeff of Svetlana 14.8 % (11.5-14.5) H 12/14/21 05:58 Plt Count 338 K/uL (130-400) 12/14/21 05:58 MPV 9.4 fL (7.4-10.4) 12/14/21 05:58 Immature Gran % (Auto) 0.5 % 12/14/21 05:58 Neut % (Auto) 79.8 % 12/14/21 05:58 Lymph % (Auto) 9.4 % 12/14/21 05:58 [place] % (Auto) 9.9 % 12/14/21 05:58 Eos % (Auto) 0.2 % 12/14/21 05:58 Baso % (Auto) 0.2 % 12/14/21 05:58 Neut # (Auto) 10.15 K/uL (1.4-6.5) H 12/14/21 05:58 Lymph # (Auto) 1.19 K/uL (1.2-3.4) L 12/14/21 05:58 [place] # (Auto) 1.26 K/uL (0.11-0.59) H 12/14/21 05:58 Eos # (Auto) 0.03 K/uL (0-0.5) 12/14/21 05:58 Baso # (Auto) 0.03 K/uL (0-0.2) 12/14/21 05:58 Immature Gran # (Auto) 0.06 K/uL (0.00-0.02) H 12/14/21 05:58 PT 9.7 Seconds (9.0-12.0) 12/13/21 Unknown INR 1.0 (0.9-1.1) 12/13/21 Unknown APTT 25.2 Seconds (21.0-31.0) 12/13/21 Unknown PTT Ratio 1.0 12/13/21 Unknown Sodium 137 mmol/L (136-145) 12/14/21 05:58 Potassium 4.4 mmol/L (3.5-5.1) 12/14/21 05:58 Chloride 107 mmol/L (98-107) 12/14/21 05:58 Carbon Dioxide 24 mmol/L (21-32) 12/14/21 05:58 Anion Gap 6 (3-11) 12/14/21 05:58 BUN 22 mg/dl (6-23) 12/14/21 05:58 Creatinine 1.09 mg/dl (0.6-1.4) 12/14/21 05:58 Est Cr Clr Drug Dosing 71.8 ml/min 12/14/21 05:58 Est GFR ( Amer) 82.7 ml/min 12/14/21 05:58 Est GFR (Non-Af Amer) 71.4 ml/min 12/14/21 05:58 BUN/Creatinine Ratio 20.2 (10-20) H 12/14/21 05:58 Glucose 144 mg/dl (70-99(Fasting)) H 12/14/21 05:58 Calcium 8.5 mg/dl (8.5-10.1) 12/14/21 05:58 Total Bilirubin 0.4 mg/dl (0.2-1.0) 12/13/21 22:50 AST 26 U/L (13-39) 12/13/21 22:50 ALT 21 U/L (7-52) 12/13/21 22:50 Alkaline Phosphatase 156 U/L (34-104) H 12/13/21 22:50 Troponin I < 0.03 ng/ml (0-0.04) 12/13/21 22:50 Total Protein 6.2 gm/dl (6.0-8.3) 12/13/21 22:50 Albumin 3.7 gm/dl (3.4-5.0) 12/13/21 22:50 Globulin 2.5 gm/dl (2.5-4.0) 12/13/21 22:50 Albumin/Globulin Ratio 1.5 (0.9-2) 12/13/21 22:50 Lipase 100 U/L (11-82) H 12/13/21 22:50 25-OH Vitamin D Total 7.5 ng/ml (30-100) L 12/14/21 05:58 Procalcitonin 0.12 ng/ml (0-0.5) 12/14/21 05:58 Urine Color Dark Yellow 12/14/21 06:20 Urine Appearance Cloudy (Clear) A 12/14/21 06:20 Urine pH 5.5 (4.5-7.5) 12/14/21 06:20 Ur Specific [place] 1.028 (1.000-1.030) 12/14/21 06:20 Urine Protein 1+ (Negative) H 12/14/21 06:20 Urine Glucose (UA) Negative (Negative) 12/14/21 06:20 Urine Ketones Trace (Negative) H 12/14/21 06:20 Urine Blood 2+ (Negative) H 12/14/21 06:20 Urine Nitrite Positive (Negative) A 12/14/21 06:20 Urine Bilirubin Negative (Negative) 12/14/21 06:20 Urine Urobilinogen Negative (Negative) 12/14/21 06:20 Ur Leukocyte Esterase Trace (Negative) H 12/14/21 06:20 Urine WBC (Auto) >30 /hpf (0-5) H 12/14/21 06:20 Urine RBC (Auto) 10-30 /hpf (0-4) H 12/14/21 06:20 U Hyaline Cast (Auto) 5-10 /lpf (0-5) H 12/14/21 06:20 U Epithel Cells (Auto) 0-5 /lpf (0-5) 12/14/21 06:20 Urine Bacteria (Auto) 1+ (Negative) H 12/14/21 06:20 Urine Mucus Present (None Prsent) A 12/14/21 06:20 Urine Yeast Not Reportable 12/14/21 06:20 SARS-CoV-2, RNA, NAAT NEGATIVE (NEGATIVE) 12/13/21 21:43 Impressions Chest X-Ray 12/13/21 21:31 XR chest 1V portable CLINICAL HISTORY: Atypical chest pain TECHNIQUE: Single frontal radiograph of the chest was obtained. Comparison: Comparison is made to chest one view 10/22/20202018 FINDINGS: No lines and tubes are seen. The cardiomediastinal silhouette is normal. The lungs are clear. No evidence of pleural effusion or pneumothorax. IMPRESSION: No acute chest disease. ACT 112: Negative or not required by law. Electronically signed by: Puneet Rose M.D. 12/14/2021 8:50 AM Hip/Pelvis X-Ray 12/13/21 21:31 XR hip LT 2V w pelvis CLINICAL HISTORY: fall TECHNIQUE: 2 views of the left hip and single frontal view of the pelvis were obtained. Comparison: None available at the time of this dictation. FINDINGS: A femoral neck fracture is seen with impaction and apex lateral angulation of the fragments. The alignment is anatomic. Joint spaces are well-preserved. Hernia mesh is seen in the right lower pelvis. IMPRESSION: Status post left femoral neck fracture. ACT 112: Negative or not required by law. Electronically signed by: Puneet Rose M.D. 12/14/2021 8:[address] 12/13/21 23:43 CT OF THE HEAD WITHOUT CONTRAST CLINICAL HISTORY: head trauma, recent falls at home, confusion COMPARISON STUDY: No previous studies for comparison. CT DOSE: 789.33 mGy.cm TECHNIQUE: Helical axial images of the head were obtained without IV contrast. Automated exposure control was utilized for the study. A dose lowering technique was utilized adhering to the principles of ALARA. FINDINGS: No acute intracranial hemorrhage, midline shift or mass effect is present. White matter hypodensity suggests small vessel disease. The ventricular system is unremarkable. The basal cisterns are patent. No extra-axial collections are present. There are no findings to suggest acute dural sinus thrombosis or acute territorial infarct. No significant calvarial abnormalities are present. Visualized portions of the sinuses and mastoid air cells are clear. IMPRESSION: 1. No acute intracranial findings. 2. No acute calvarial fracture. ACT 112: Negative or not required by law. Electronically signed by: Mike Gifford M.D. 12/14/2021 6:47 AM (1) Closed fracture of left hip Encounter type: initial encounter Qualified Code(s): S72.002A - Fracture of unspecified part of neck of left femur, initial encounter for closed fracture
[2021-12-14 14:20] LABS: Hematocrit (blood only) 36.3 % (42-52); Hemoglobin 12.7 g/dL (14.0-18.0)
[2021-12-14] MEDS: cefTRIAXone SODIUM 1,000 MG in DEXTROSE 5% 50 ML IV SCH (14:48)
[2021-12-14] MEDS: OLANZapine 10 MG TAB PO SCH (20:43)
[2021-12-14] MEDS: PERPHENAZINE 2 MG TABLET PO SCH (20:43)
[2021-12-14] MEDS ORDERED: lisinopril 20 MG TAB PO SCH (21:00)
[2021-12-15] MEDS ORDERED: HYDROmorphone INJ 0.5 MG/0.5 ML SYR IV STA (00:05)
[2021-12-15] MEDS: ACETAMINOPHEN 1000 MG/100 ML IV IV SCH ×3 (02:56→19:02)
[2021-12-15] MEDS: HYDROmorphone INJ 0.5 MG/0.5 ML SYR IV PRN ×2 (05:49→10:08)
[2021-12-15 06:09] LABS: Basophils # (auto) 0.05 K/uL (0-0.2); Basophils % (auto) 0.4 %; Eosinophils # (auto) 0.26 K/uL (0-0.5); Hematocrit (blood only) 33.3 % (42-52); Hemoglobin 11.5 g/dL (14.0-18.0); Immature Granulocytes # (auto) 0.05 K/uL (0.00-0.02); Immature Granulocytes % (auto) 0.4 %; Lymphocytes # (auto) 2.02 K/uL (1.2-3.4); Lymphocytes % (auto) 15.8 %; Mean Corpuscular Hgb Conc 34.5 g/dL (32-36); Mean Corpuscular Volume 89.8 fL (80-100); Mean Platelet Volume 9.5 fL (7.4-10.4); Monocytes # (auto) 1.23 K/uL (0.11-0.59); Monocytes % (auto) 9.6 %; Neutrophils % (auto) 71.8 %; Platelet Count 299 K/uL (130-400); RDW Coefficient of Variation 14.6 % (11.5-14.5); RDW Standard Deviation 47.7 fL (36.4-46.3); Red Blood Count 3.71 M/uL (4.7-6.1); White Blood Count 12.81 K/uL (4.8-10.8)
--- NOTE | 2021-12-15 06:27 | Billing Data ---
Date of Service December 13, 2021 Coding Level of Care Code 23643 Initial Inpt Care Lvl 3
[2021-12-15 06:51] LABS: Albumin Globulin Ratio 1.4 (0.9-2); Albumin Level 3.4 gm/dl (3.4-5.0); BUN Creatinine Ratio 30.7 (10-20); Bilirubin,Total 0.7 mg/dl (0.2-1.0); Calcium 8.1 mg/dl (8.5-10.1); Creatinine Clr Calc Pharmacy 88.9 ml/min; Est GFR (African American) 105.2 ml/min; Est GFR (Non-African American) 90.8 ml/min; Globulin 2.5 gm/dl (2.5-4.0); Potassium 4.1 mmol/L (3.5-5.1); Total Protein 5.9 gm/dl (6.0-8.3)
[2021-12-15] MEDS: cefTRIAXone SODIUM 1,000 MG in DEXTROSE 5% 50 ML IV SCH (07:30)
[2021-12-15] MEDS: buPROPion XL 300 MG TABCR PO SCH (07:31)
[2021-12-15] MEDS: FLUoxetine HCL 20 MG CAP PO SCH (07:31)
[2021-12-15] MEDS: FLUTICASONE/VILANTEROL 200/25MCG 14 PUFFS/INHALER INH SCH (07:31)
[2021-12-15] MEDS: LOSARTAN POTASSIUM 25 MG TAB PO SCH (07:31)
--- NOTE | 2021-12-15 07:36 | Medical Student Progress Note ---
Date of Service December 15, 2021 Assessment & Plan (1) Closed fracture of left hip: Plan: Betzaida is a 66 yo M with a history of COPD, HTN, BPH, MDD, who was transported to [facility] via ALS following a fall down 2 icy steps and landing on his left side.He received IV fluids prior to arrival. Unremarkable EKG, Head CT w/o contrast. X-ray Hip/Pelvis positive for closed fracture of L hip; to have surgery today (12/15). Closed fracture of left hip - status post fall 2 icy steps (+) landing on left side and hitting head (-) visible head trauma, LOC - X-ray Hip/Pelvis: L hip fracture with impaction and angulation - Ortho consult: Pt will require femoral nailing. - Surgery planned - Monitor CBC for internal bleeding - Pain: 02/11, Acetaminophen 1g q8, Dilaudid 0.5mg IV q4h PRN until post procedure - Diet: NPO until procedure - Velazquez catheter - PT/OT ordered for after procedure Confusion - reported by ; she noted that pt has had decreased energy, increased confusion, and has fallen over the last couple days + stated that this is consistent with prior UTIs. - pt does not appear confused at this time - Unremarkable Head CT w/o contrast, Chest X-Ray - UA: Suspicious for UTI given cloudy, +nitrite, + leuk esterase, + WBC, + bacteria; culture still pending - Continue Rocephin while waiting for culture in the setting of recent hx of confusion and suspicious UA Dizziness - pt reports 2wk hx of dizziness upon standing up - unable to assess at this point in the setting of L hip fracture - Unremarkable. EKG, Head CT w/o contrast, Chest X-Ray - suspecting for orthostatic etiology; consider exacerbation by Olanzapine, Perphenazine, infection. - report of pt taking Tamsulosin, however pt reports he has not been taking this medication for some time. Vitamin D deficiency - Replace vitamin D once PO following procedure COPD - continue Breo Ellipta, home inhaler Hypertension - stable, 113/79 this AM - continue Losartan BPH - not currently on medications - previously was on Finasteride and Tamsulosin, unsure why it was stopped. - Potentially related to dizziness episode. MDD - continue home meds (olanzapine, fluoxetine, wellbutrin, perphenazine) Code: DNR/DNI DVT ppx: SCDs until procedure Diet: NPO for procedure Encounter type: initial encounter Qualified Code(s): S72.002A - Fracture of unspecified part of neck of left femur, initial encounter for closed fracture Admission and Anticipated Discharge Date Admission Date: December 13, 2021 Supervising Attestation Medical Student Supervision Note: I was personally present during medical student patient encounter and independently interviewed and examined the patient and verified the casillas history and physical, reviewed labs and image studies, discussed the case with Mariangel Chavez and agree with the findings and care plan. OR today for hip fracture repair Mentation clear. Urine culture with pin-point growth. on IV rocephin. will d/c post op. Subjective Pt was seen at bedside today. He rated his pain as 4/10, and reported satisfactory pain management/relief. He denies SOB, dizziness, confusion, new rashes. Inquired about olanzapine and perphenazine given no known psych medical hx other than MDD -- Pt reports trying to commit suicide approx 2 year ago, resulting in 2 month inpatient psych in [place]. Review of Systems Respiratory: no cough, no dyspnea and no wheezing Gastrointestinal: no abdominal pain and no nausea Integumentary: no rash Psychiatric: no confusion Physical Exam Respiratory: normal respiratory effort, lungs clear to auscultation Cardiovascular: RRR, no murmur, no edema Gastrointestinal (Abdomen): normal bowel sounds, soft, nontender, no hepatosplenomegaly Musculoskeletal: L hip shortened, externally rotated. L knee flexed. Pt able to move ankles and toes b/l. Pedal pulses equal b/l. Skin: no rashes, warm and dry Psychiatric: A+Ox3, euthymic affect Results & Data ([facility]) Vital Signs (Past 12 Hours) Vital Signs Temp Pulse Resp BP Pulse Ox 12/14/21 23:24 37.2 C 90 18 127/81 94 Laboratory Results 12/15/21 12/15/21 12/14/21 Range/Units 05:19 05:19 14:12 WBC 12.81 H (4.8-10.8) K/uL RBC 3.71 L (4.7-6.1) M/uL Hgb 11.5 L 12.7 L (14.0-18.0) g/dL Hct 33.3 L 36.3 L (42-52) % MCV 89.8 (80-100) fL MCH 31.0 (25-34) pg MCHC 34.5 (32-36) g/dL RDW Std Deviation 47.7 H (36.4-46.3) fL RDW Coeff of Svetlana 14.6 H (11.5-14.5) % Plt Count 299 (130-400) K/uL MPV 9.5 (7.4-10.4) fL Immature Gran % (Auto) 0.4 % Neut % (Auto) 71.8 % Lymph % (Auto) 15.8 % [place] % (Auto) 9.6 % Eos % (Auto) 2.0 % Baso % (Auto) 0.4 % Neut # (Auto) 9.20 H (1.4-6.5) K/uL Lymph # (Auto) 2.02 (1.2-3.4) K/uL [place] # (Auto) 1.23 H (0.11-0.59) K/uL Eos # (Auto) 0.26 (0-0.5) K/uL Baso # (Auto) 0.05 (0-0.2) K/uL Immature Gran # (Auto) 0.05 H (0.00-0.02) K/uL Sodium 133 L (136-145) mmol/L Potassium 4.1 (3.5-5.1) mmol/L Chloride 104 (98-107) mmol/L Carbon Dioxide 23 (21-32) mmol/L Anion Gap 6 (3-11) BUN 27 H (6-23) mg/dl Creatinine 0.88 (0.6-1.4) mg/dl Est Cr Clr Drug Dosing 88.9 ml/min Est GFR ( Amer) 105.2 ml/min Est GFR (Non-Af Amer) 90.8 ml/min BUN/Creatinine Ratio 30.7 H (10-20) Glucose 115 H (70-99(Fasting)) mg/dl Calcium 8.1 L (8.5-10.1) mg/dl Total Bilirubin 0.7 (0.2-1.0) mg/dl AST 22 (13-39) U/L ALT 35 (7-52) U/L Alkaline Phosphatase 158 H (34-104) U/L Total Protein 5.9 L (6.0-8.3) gm/dl Albumin 3.4 (3.4-5.0) gm/dl Globulin 2.5 (2.5-4.0) gm/dl Albumin/Globulin Ratio 1.4 (0.9-2) Procalcitonin (0-0.5) ng/ml 12/14/21 Range/Units 05:58 WBC (4.8-10.8) K/uL RBC (4.7-6.1) M/uL Hgb (14.0-18.0) g/dL Hct (42-52) % MCV (80-100) fL MCH (25-34) pg MCHC (32-36) g/dL RDW Std Deviation (36.4-46.3) fL RDW Coeff of Svetlana (11.5-14.5) % Plt Count (130-400) K/uL MPV (7.4-10.4) fL Immature Gran % (Auto) % Neut % (Auto) % Lymph % (Auto) % [place] % (Auto) % Eos % (Auto) % Baso % (Auto) % Neut # (Auto) (1.4-6.5) K/uL Lymph # (Auto) (1.2-3.4) K/uL [place] # (Auto) (0.11-0.59) K/uL Eos # (Auto) (0-0.5) K/uL Baso # (Auto) (0-0.2) K/uL Immature Gran # (Auto) (0.00-0.02) K/uL Sodium (136-145) mmol/L Potassium (3.5-5.1) mmol/L Chloride (98-107) mmol/L Carbon Dioxide (21-32) mmol/L Anion Gap (3-11) BUN (6-23) mg/dl Creatinine (0.6-1.4) mg/dl Est Cr Clr Drug Dosing ml/min Est GFR ( Amer) ml/min Est GFR (Non-Af Amer) ml/min BUN/Creatinine Ratio (10-20) Glucose (70-99(Fasting)) mg/dl Calcium (8.5-10.1) mg/dl Total Bilirubin (0.2-1.0) mg/dl AST (13-39) U/L ALT (7-52) U/L Alkaline Phosphatase (34-104) U/L Total Protein (6.0-8.3) gm/dl Albumin (3.4-5.0) gm/dl Globulin (2.5-4.0) gm/dl Albumin/Globulin Ratio (0.9-2) Procalcitonin 0.12 (0-0.5) ng/ml
[2021-12-15] MEDS ORDERED: fentaNYL citrate 100 MCG/2 ML VIAL ONE ×2 (14:50→16:28)
[2021-12-15] MEDS ORDERED: MIDAZOLAM HCL 1 MG/ML 2ML VIAL ONE (14:50)
[2021-12-15] MEDS ORDERED: HYDROmorphone INJ 2 MG/ML SYR/VIAL IV PRN (14:58)
[2021-12-15] MEDS ORDERED: ONDANSETRON INJ 2 MG/ML 2 ML VIAL IV PRN (14:58)
[2021-12-15] MEDS ORDERED: fentaNYL citrate 100 MCG/2 ML VIAL IV PRN (14:58)
[2021-12-15] MEDS ORDERED: ePHEDrine sulfate 50 MG/ML AMP IV PRN (14:58)
[2021-12-15] MEDS ORDERED: ATROPINE SULFATE 0.1 MG/ML 10ML SYR IV PRN (14:58)
--- NOTE | 2021-12-15 14:58 | Anesthesiology Consultation ---
Date of Service December 15, 2021 Assessment & Plan ASA ASA2 Proposed Anesthesia Anesthesia Type: General Risk / Benefits Reviewed With: PT / POA / Parent / Guardian, Accepts Plan and Informed Consent Obtained History Surgery Operation Date: 12/15/21 08:40 Proposed Procedures p Left Troch Nail - Solomon Blum M.D. Height/Weight Height: 5 ft 10.5 in Weight: 75.8 kg Allergies Allergy/AdvReac Type Severity Reaction Status Date / Time No Known Allergies Allergy Verified 12/14/21 00:15 Medications Home Medications Medication Instructions Recorded Confirmed Last Taken budesonide-formoterol HFA 160 2 puff INHALATION BID 12/14/21 12/14/21 Unknown mcg-4.5 mcg/actuation aerosol inhaler (Symbicort) bupropion HCl 300 mg 24 hr tablet, 300 mg PO QAM 12/14/21 12/14/21 Unknown extended release fluoxetine 20 mg capsule 60 mg PO DAILY 12/14/21 12/14/21 Unknown losartan 25 mg tablet 0 mg PO DAILY 12/14/21 12/14/21 Unknown olanzapine 10 mg tablet 10 mg PO HS 12/14/21 12/14/21 Unknown perphenazine 16 mg tablet 8 mg PO HS 12/14/21 12/14/21 Unknown Active Medications Generic Name Dose Route Start Last Admin Trade Name Stuartq PRN Reason Stop Dose Admin Acetaminophen 1,000 mg 12/14/21 10:00 12/15/21 10:08 Acetaminophen 1000 Mg/100 Ml Iv IV 12/17/21 09:59 1,000 mg Q8H JONATAN Administration Bupropion HCl 300 mg 12/14/21 09:00 12/15/21 07:31 Bupropion Xl 300 Mg Tabcr PO 01/13/22 08:59 300 mg QAM JONATAN Administration Fluoxetine HCl 60 mg 12/14/21 09:00 12/15/21 07:31 Fluoxetine Hcl 20 Mg Cap PO 01/13/22 08:59 60 mg QAM JONATAN Administration Fluticasone/Vilanterol 1 puffs 12/14/21 09:00 12/15/21 07:31 Fluticasone/Vilanterol 200/25mcg 14 Puffs/Inhaler INH 01/13/22 08:59 1 puffs DAILY JONATAN Administration Hydromorphone HCl 0.5 mg 12/13/21 23:11 12/15/21 10:08 Hydromorphone Inj 0.5 Mg/0.5 Ml Syr IV 12/27/21 23:10 0.5 mg Q4H PRN Administration Pain Ceftriaxone Sodium 1,000 mg/ 50 mls @ 100 mls/hr 12/14/21 14:30 12/15/21 08:06 Dextrose IV 12/24/21 14:29 Infused DAILY JONATAN Infusion Protocol Losartan Potassium 25 mg 12/15/21 09:00 12/15/21 07:31 Losartan Potassium 25 Mg Tab PO 01/14/22 08:59 25 mg QAM JONATAN Administration Olanzapine 10 mg 12/14/21 21:00 12/14/21 20:43 Olanzapine 10 Mg Tab PO 01/13/22 20:59 10 mg HS JONATAN Administration Perphenazine 8 mg 12/14/21 21:00 12/14/21 20:43 Perphenazine 2 Mg Tablet PO 01/13/22 20:59 8 mg HS JONATAN Administration NPO Date Last Intake of Fluids: 12/14/21 Time Last Intake of Fluids: 23:00 Last Intake of Fluids Comment: sip water today at 0800 for meds Date Last Intake of Solids: 12/14/21 Time Last Intake of Solids: 17:00 Last Intake of Solids Comment: patient ate breakfast. Past Medical History Medical History BPH without urinary obstruction History of GI bleed 2014 r/t ASA use Hypertension Urethral stricture Exercise / Class Metabolic Activity II 4-5 Yardwork/Stairs/Walk up hill Past Family History Family History Other No significant family history Past Surgical History Surgical History 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 (2/2 trauma) History of ankle surgery RT History of cholecystectomy History of colonoscopy History of esophagogastroduodenoscopy (EGD) History of herniorrhaphy INGUINAL History of open reduction and internal fixation (ORIF) procedure RT TIB/FIB Past Anesthesia History No Hx of Anesthesia Complications and No Family Hx of Anesthesia Complications History of PONV No Hx of PONV and No Hx of Motion Sickness Social History Smoking Status: Current every day smoker tobacco type: cigarettes Smoking cigarettes per day: 1/2 ppd Do You Dip or Chew Tobacco: No Hx Alcohol Use: No Alcohol type: beer alcohol intake frequency: 3 or more drinks per day (2-3 beers/day (through out the day)) Hx Substance Use: No substance use type: marijuana Last Used Substance Other:: LAST USED YESTERDAY(ADVISED) Review of Systems denies fever/cough/ colds/ chest pain/ SOB/ GARRY denies GARRY Physical Exam Vital Signs Last Vital Signs Temp 36.6 C 12/15/21 14:09 Pulse 86 12/15/21 14:09 Resp 20 12/15/21 14:09 BP 113/79 12/15/21 14:09 Pulse Ox 95 12/15/21 14:09 ENMT Mouth: no TMJ abnormality and no dentition abnormality Thyromental Distance: > or= 3.5 Finger Breadths Mallampati Class: II Neck neck extension not limited Respiratory normal respiratory effort; no respiratory distress Auscultation: lungs clear to auscultation bilaterally Cardiovascular Rate/Rhythm: regular rate and regular rhythm Neurologic moves all extremities Psychiatric Orientation: alert and oriented x 3 Testing Laboratory Results 12/15/21 05:19 12/15/21 05:19 PT 9.7 Seconds (9.0-12.0) 12/13/21 Unknown INR 1.0 (0.9-1.1) 12/13/21 Unknown APTT 25.2 Seconds (21.0-31.0) 12/13/21 Unknown Urine Color Dark Yellow 12/14/21 06:20 Urine Appearance Cloudy (Clear) A 12/14/21 06:20 Urine pH 5.5 (4.5-7.5) 12/14/21 06:20 Ur Specific [place] 1.028 (1.000-1.030) 12/14/21 06:20 Urine Protein 1+ (Negative) H 12/14/21 06:20 Urine Glucose (UA) Negative (Negative) 12/14/21 06:20 Urine Ketones Trace (Negative) H 12/14/21 06:20 Urine Nitrite Positive (Negative) A 12/14/21 06:20 Ur Leukocyte Esterase Trace (Negative) H 12/14/21 06:20 Urine WBC (Auto) >30 /hpf (0-5) H 12/14/21 06:20 Urine RBC (Auto) 10-30 /hpf (0-4) H 12/14/21 06:20 U Hyaline Cast (Auto) 5-10 /lpf (0-5) H 12/14/21 06:20 U Epithel Cells (Auto) 0-5 /lpf (0-5) 12/14/21 06:20 Urine Bacteria (Auto) 1+ (Negative) H 12/14/21 06:20 12/14/21 06:20 Urine Culture - Preliminary Urine,Indwelling Cath Pin-point growth present, reincubating.
--- NOTE | 2021-12-15 15:23 | History & Physical Bridge Note ---
Date of Service December 15, 2021 History & Physical Bridge Note I have examined the patient, reviewed the History & Physical and in the interval since the performance of the History & Physical I have noted the following changes of clinical significance: no changes noted
[2021-12-15] MEDS ORDERED: DEXAMETHASONE SOD INJ 4 MG/ML VIAL ONE (15:58)
[2021-12-15] MEDS ORDERED: LIDOCAINE 2% 2 ML VIAL/AMP(20MG/ML) INFIL ONE (15:58)
[2021-12-15] MEDS ORDERED: ONDANSETRON INJ 2 MG/ML 2 ML VIAL ONE (15:58)
[2021-12-15] MEDS ORDERED: PROPOFOL IV EMULSION 10 MG/ML 20 ML VIAL IV ONE (15:58)
[2021-12-15] MEDS ORDERED: SODIUM CHLORIDE 0.9% INJ 10 ML VIAL ONE (16:12)
[2021-12-15] MEDS ORDERED: ceFAZolin 330 MG/ML 1 GM VIAL ONE (16:12)
--- NOTE | 2021-12-15 17:38 | Post Operative Brief Note ---
Immediate Post Op Note v1 Date of Surgery December 15, 2021 Pre & Post Diagnosis Operation Date: 12/15/21 08:40 Pre-Op Diagnosis: Left hip reverse obliquity intertrochanteric femur fracture with subtrochanteric extension Post-Op Diagnosis: Left hip reverse obliquity intertrochanteric femur fracture with subtrochanteric extension I identified the patient and participated in the time-out.: Yes Procedure Operation Date: 12/15/21 08:40 Actual Procedures Left hip long cephalomedullary nailing of reverse obliquity intertrochanteric femur fracture with subtrochanteric extension - Solomon Blum M.D. Surgeon Solomon Blum Screw Machine Set Up Operator Kendall Stephens PA-C Estimated Blood Loss 125 Findings Consistent with Post-Op Diagnosis Drains Guallpa Catheter (patient came to OR with guallpa in place, output to be monitored by anesthesia throughout procedure)
--- NOTE | 2021-12-15 17:39 | Operative Report ---
Post Operative Report Pre & Post Diagnosis Operation Date: 12/15/21 08:40 Pre-Op Diagnosis: Left hip reverse obliquity intertrochanteric femur fracture with subtrochanteric extension Post-Op Diagnosis: Left hip reverse obliquity intertrochanteric femur fracture with subtrochanteric extension I identified the patient and participated in the time-out.: Yes Procedure Operation Date: 12/15/21 08:40 Actual Procedures Left hip long cephalomedullary nailing of reverse obliquity intertrochanteric femur fracture with subtrochanteric extension ([id number]) - Solomon Blum M.D. Surgeon Solomon Blum Whipper Beater Kendall Stephens PA-C Estimated Blood Loss 125 Findings Consistent with Post-Op Diagnosis Specimens None Drains None Anesthesia Type General Complications none Disposition Disposition: Recovery Room Indications Mr. Mandujano is a 66-year old male who fell down some icy steps 2 days ago on December 13. History, clinical exam, and imaging were consistent with the above diagnosis. Risks, benefits, and alternatives of surgery were explained in detail. The patient understood all this and wished to proceed. Description of Procedure Implants: Synthes Long ([id number]) 130 degree Trochanteric Fixation Nail, 11mm helical blade, 5mm distal locking screw Patient was identified in the preoperative holding area. Operative extremity was marked. Patient was then brought back to the operating room, and general anesthesia was induced without complication. Appropriate weight-based dose of Ancef was infused intravenously for antibiotic prophylaxis. Patient was then positioned on the fracture table with the traction apparatus. The nonoperative hip was flexed and placed into the well leg kuhn. Longitudinal traction was applied to the operative hip. Fracture reduction was then performed under fluoroscopic imaging. Once acceptable reduction had been achieved, the left hip was then prepped and draped in a standard sterile fashion using Chlorhexidine prep. I first made an incision along the lateral aspect of the femur directly lateral to the subtrochanteric region of the fracture, and roughly in the position for the lag screw into the femoral head. I incised through the iliotibial band. The femoral shaft segment of the fracture was still significantly medially displaced despite the longitudinal traction. I was able to manipulate this back into good alignment by applying laterally directed pressure on the femoral shaft with a hooked reduction clamp, and medially directed force along the proximal segment with a ball spike pusher. I then placed a "turkey claw" reduction clamp across the fracture site, and held the reduction with the clamp during insertion of the nail. I then made a more proximal incision just proximal to the greater trochanter in line with the femoral shaft axis, and split the fibers of the iliotibial band. I then bluntly palpated down to the greater trochanter and inserted the guidewire down to the tip of the greater trochanter. It was appropriately positioned on AP and lateral images, and then driven into the proximal femur. I then inserted the soft tissue protector down to the tip of the greater trochanter and then passed the entry reamer over top of the guidewire. It was advanced down towards the lesser trochanter to open the proximal femur. I then inserted a ball-tipped guidewire down the femoral shaft towards the knee. Once it was in appropriate position, an appropriate length nail was selected. The femoral canal was then sequentially reamed up to 12.5 mm diameter to allow passage of an 11 mm diameter nail. The Synthes long TFN was then attached to the targeting arm and inserted into the proximal femur. I malleted it down to an appropriate depth for proper trajectory of the helical blade into the femoral head. Once the nail was at an appropriate depth, I then attached the targeting guide for the helical blade onto the targeting arm. The targeting guide was placed through the previously made incision, and the guide sleeve was placed against the lateral cortex of the femur. Guidewire was then inserted through the guide and up into the femoral neck and head. I verified proper placement and trajectory under both AP and lateral images. I advanced the guidewire to the subchondral bone in the femoral head and verified proper depth on orthogonal images. I then measured the depth off of the guidewire. The drill for the helical blade was then set at an appropriate level to match the measured length. The drill was then advanced to the set depth. An appropriate length helical blade was selected and malleted into place over the guidewire. I then deployed the set screw proximally to prevent rotation of the helical blade during fracture compression. Fracture compression was then applied using the compression ring on the helical blade targeting sleeve. The proximal targeting arm was then removed. I then proceeded with distal locking screw insertion at the knee. "Perfect circles" was achieved with fluoroscopy for targeting of the distal static locking screw hole through the distal end of the nail. Both cortices of the femur were drilled through this distal locking hole. An appropriate length distal locking screw was selected and inserted. I decided to insert a second distal locking screw through the oblong distal hole in static mode for additional longitudinal stabilization due to the reverse obliquity of the fracture in the subtrochanteric region. The proximal end of the oblong hole was targeted, and both cortices of the femur were drilled. An appropriate length distal locking screw was then selected and inserted. Final fluoroscopic images were then obtained to ensure proper hardware placement, screw length, and fracture reduction. The wounds were then copiously irrigated with sterile saline. I then closed the iliotibial band and deep dermal tissue with #0 Vicryl suture. Subcutaneous tissues closed with 3-0 Vicryl suture, and skin was closed with pete. Sterile dressings were then applied with Xeroform, sterile gauze, and foam tape. Drapes were then removed and traction apparatus was disconnected. The patient was awakened from general anesthesia, transferred over to the stretcher, and taken to the Post Anesthesia Care Unit in stable condition. There were no immediate complications from the procedure. I was present and scrubbed for the entire procedure. Due to the complex nature of the procedure, the entire surgery was performed with the operational assistance of Kendall Stephens PA-C. The hearing aid assistant, under direct supervision, was involved in the performance of all aspects of the surgical procedure including hemostasis, tissue incision and retraction, instrument management, patient positioning, and wound closure. I attest to the content of the Intraoperative Record and any orders documented therein. Any exceptions are noted below.
--- NOTE | 2021-12-15 17:54 | Fluoroscopy Report ---
FL hip LT 2-3V CLINICAL HISTORY: LT TROCH NAIL TECHNIQUE: 4 views were obtained with the C-arm in the OR with the above procedure. Total fluoroscopy time was 107.7 seconds. Total skin dose was 20.94 mGy. Comparison: None available at the time of this dictation. FINDINGS/IMPRESSION: Intraoperative images were obtained of left femoral trochanteric nail placement. Please correlate with intraoperative fluoroscopy and operative report. ACT 112: Negative or not required by law. Electronically signed by: Puneet Rose M.D. 12/15/2021 5:52 PM
--- NOTE | 2021-12-15 18:10 | Anesthesiology Progress Note ---
Date of Service December 15, 2021 Anesthesia Post Procedure Vital Signs Vital Signs: Temp Pulse Pulse Resp BP Pulse Ox 12/15/21 18:00 98 H 14 110/75 93 12/15/21 17:50 95 H 13 93/69 L 95 12/15/21 17:40 93 H 13 100/67 95 12/15/21 17:33 36.9 C 98 H 12 103/68 94 12/15/21 14:09 36.6 C 86 20 113/79 95 12/15/21 09:09 36.7 C 76 17 118/79 94 12/14/21 23:24 37.2 C 90 18 127/81 94 Pain Intensity Left Hip: Pain Intensity: 2 Transfer of Care Handoff Completed per policy Notes Mental Status: alert / awake / arousable and participated in evaluation Patient Amnestic to Procedure: Yes Nausea / Vomiting: adequately controlled Pain: adequately controlled Airway Patency, RR, SpO2: stable & adequate BP & HR: stable & adequate Hydration State: stable & adequate Anesthetic Complications: no major complications apparent and Pt Satisfied with anesthetic care
[2021-12-15] MEDS ORDERED: bisacodyL 10 MG SUPP PR PRN (18:12)
[2021-12-15] MEDS ORDERED: MAGNESIUM HYDROXIDE SUSP 30 ML UDC PO PRN (18:12)
[2021-12-15] MEDS ORDERED: NALOXONE HCL 0.4 MG/1 ML VIAL/CARP IV PRN (18:12)
[2021-12-15] MEDS ORDERED: ACETAMINOPHEN 500 MG TAB PO PRN (18:12)
[2021-12-15] MEDS ORDERED: SODIUM CHLORIDE 0.9% 1000ML 1,000 ML IV SCH (18:30)
[2021-12-15] MEDS: OLANZapine 10 MG TAB PO SCH (20:39)
[2021-12-15] MEDS: DOCUSATE SODIUM 100 MG CAP PO SCH (20:39)
[2021-12-15] MEDS: PERPHENAZINE 2 MG TABLET PO SCH (20:40)
[2021-12-15] MEDS: ASPIRIN 81 MG ECTAB PO SCH (20:40)
[2021-12-15] MEDS: oxyCODONE HCL IR 5 MG TAB (IMMEDIATE RELEASE) PO PRN (22:26)
[2021-12-15] MEDS: ceFAZolin 2000MG 2,000 MG/15 ML SYR IV SCH (23:19)
--- NOTE | 2021-12-15 23:49 | Electrocardiogram Report ---
Test Reason : Blood Pressure : / mmHG Vent. Rate : 088 BPM Atrial Rate : 088 BPM P-R Int : 176 ms QRS Dur : 080 ms QT Int : 392 ms P-R-T Axes : 061 000 -01 degrees QTc Int : 474 ms Normal sinus rhythm Nonspecific T wave abnormality Abnormal ECG No previous ECGs available Confirmed by Balta Doran ([id number]) on 12/15/2021 11:48:45 PM Referred By: REFERRED SELF Confirmed By:Balta Doran
[2021-12-16] MEDS: HYDROmorphone INJ 0.5 MG/0.5 ML SYR IV PRN ×3 (03:19→13:05)
[2021-12-16 06:25] LABS: Hematocrit (blood only) 26.5 % (42-52); Hemoglobin 9.1 g/dL (14.0-18.0); Mean Corpuscular Hemoglobin 31.2 pg (25-34); Mean Corpuscular Hgb Conc 34.3 g/dL (32-36); Mean Corpuscular Volume 90.8 fL (80-100); Mean Platelet Volume 9.3 fL (7.4-10.4); Platelet Count 291 K/uL (130-400); RDW Coefficient of Variation 14.6 % (11.5-14.5); RDW Standard Deviation 48.3 fL (36.4-46.3); Red Blood Count 2.92 M/uL (4.7-6.1); White Blood Count 15.06 K/uL (4.8-10.8)
[2021-12-16 06:37] LABS: BUN Creatinine Ratio 35.7 (10-20); Calcium 7.7 mg/dl (8.5-10.1); Creatinine Clr Calc Pharmacy 93.2 ml/min; Est GFR (African American) 107.2 ml/min; Est GFR (Non-African American) 92.5 ml/min; Potassium 4.3 mmol/L (3.5-5.1)
--- NOTE | 2021-12-16 07:03 | Orthopedic Progress Note ---
Date of Service December 16, 2021 Assessment & Plan (1) Closed fracture of left hip: Plan: POD #1 s/p Left Trochanteric Femoral Nailing PT/OT dvt prop with LUKASZ/SCD/ASA TTWB left lower leg Admission and Anticipated Discharge Date Admission Date: December 13, 2021 Subjective POD #1 s/p Left Trochanteric Femoral Nailing Review of Systems Constitutional: no fever and no chills Respiratory: no cough and no dyspnea Cardiovascular: no chest pain and no dyspnea Gastrointestinal: no abdominal pain, no nausea and no vomiting Physical Exam Physical Exam: Vital Signs Temp 37.4 C 12/16/21 03:31 Pulse 111 H 12/16/21 03:31 Resp 18 12/16/21 03:31 BP 109/76 12/16/21 03:31 Pulse Ox 92 12/16/21 03:31 Intake & Output 12/15/21 12/16/21 12/16/21 18:59 06:59 18:59 Intake Total 1050 / 2050 1000 / 2050 Output Total 625 / 1150 525 / 1150 Balance 425 / 900 475 / 900 Weight 75.8 kg Intake: IV 50 / 1050 1000 / 1050 Sodium Chlorid e 0.9% 1000ML 1, 1000 / 1000 000 ml @ 80 ml s/hr IV .[id number] JONATAN Rx#:[id number] cefTRIAXone SO DIUM 1,000 mg In 50 / 50 Dextrose 5% 50 ml @ 100 mls/hr IV DAILY JONATAN R x#:[id number] IV Perioperative 1000 / 1000 Output: Estimated Blood Loss 125 / 125 Urine Amount (Ca theter) 500 / 1025 525 / 1025 Velazquez/Indwelli ng 500 / 1025 525 / 1025 Musculoskeletal: Hip: + hip abnormal to inpsection (dressing clean and dry. calf soft, non tender. DP +2), + ecchymosis and + surgical incision (no drainage onto dressing); no skin erythema Results & Data ([facility]) Vital Signs (Past 12 Hours) Vital Signs Temp Pulse Resp BP Pulse Ox 12/16/21 03:31 37.4 C 111 H 18 109/76 92 12/15/21 22:16 36.8 C 119 H 20 113/77 92 12/15/21 20:36 36.8 C 118 H 18 112/78 93 12/15/21 19:33 36.6 C 118 H 17 124/85 96 12/15/21 19:12 110 H 16 111/77 98 Laboratory Results Laboratory Results WBC 15.06 K/uL (4.8-10.8) H 12/16/21 05:33 RBC 2.92 M/uL (4.7-6.1) L 12/16/21 05:33 Hgb 9.1 g/dL (14.0-18.0) L 12/16/21 05:33 Hct 26.5 % (42-52) L 12/16/21 05:33 MCV 90.8 fL (80-100) 12/16/21 05:33 MCH 31.2 pg (25-34) 12/16/21 05:33 MCHC 34.3 g/dL (32-36) 12/16/21 05:33 RDW Std Deviation 48.3 fL (36.4-46.3) H 12/16/21 05:33 RDW Coeff of Svetlana 14.6 % (11.5-14.5) H 12/16/21 05:33 Plt Count 291 K/uL (130-400) 12/16/21 05:33 MPV 9.3 fL (7.4-10.4) 12/16/21 05:33 Immature Gran % (Auto) 0.4 % 12/15/21 05:19 Neut % (Auto) 71.8 % 12/15/21 05:19 Lymph % (Auto) 15.8 % 12/15/21 05:19 Frederick % (Auto) 9.6 % 12/15/21 05:19 Eos % (Auto) 2.0 % 12/15/21 05:19 Baso % (Auto) 0.4 % 12/15/21 05:19 Neut # (Auto) 9.20 K/uL (1.4-6.5) H 12/15/21 05:19 Lymph # (Auto) 2.02 K/uL (1.2-3.4) 12/15/21 05:19 Frederick # (Auto) 1.23 K/uL (0.11-0.59) H 12/15/21 05:19 Eos # (Auto) 0.26 K/uL (0-0.5) 12/15/21 05:19 Baso # (Auto) 0.05 K/uL (0-0.2) 12/15/21 05:19 Immature Gran # (Auto) 0.05 K/uL (0.00-0.02) H 12/15/21 05:19 PT 9.7 Seconds (9.0-12.0) 12/13/21 Unknown INR 1.0 (0.9-1.1) 12/13/21 Unknown APTT 25.2 Seconds (21.0-31.0) 12/13/21 Unknown PTT Ratio 1.0 12/13/21 Unknown Sodium 133 mmol/L (136-145) L 12/16/21 05:33 Potassium 4.3 mmol/L (3.5-5.1) 12/16/21 05:33 Chloride 103 mmol/L (98-107) 12/16/21 05:33 Carbon Dioxide 22 mmol/L (21-32) 12/16/21 05:33 Anion Gap 8 (3-11) 12/16/21 05:33 BUN 30 mg/dl (6-23) H 12/16/21 05:33 Creatinine 0.84 mg/dl (0.6-1.4) 12/16/21 05:33 Est Cr Clr Drug Dosing 93.2 ml/min 12/16/21 05:33 Est GFR ( Amer) 107.2 ml/min 12/16/21 05:33 Est GFR (Non-Af Amer) 92.5 ml/min 12/16/21 05:33 BUN/Creatinine Ratio 35.7 (10-20) H 12/16/21 05:33 Glucose 146 mg/dl (70-99(Fasting)) H 12/16/21 05:33 Calcium 7.7 mg/dl (8.5-10.1) L 12/16/21 05:33 Total Bilirubin 0.7 mg/dl (0.2-1.0) 12/15/21 05:19 AST 22 U/L (13-39) 12/15/21 05:19 ALT 35 U/L (7-52) 12/15/21 05:19 Alkaline Phosphatase 158 U/L (34-104) H 12/15/21 05:19 Troponin I < 0.03 ng/ml (0-0.04) 12/13/21 22:50 Total Protein 5.9 gm/dl (6.0-8.3) L 12/15/21 05:19 Albumin 3.4 gm/dl (3.4-5.0) 12/15/21 05:19 Globulin 2.5 gm/dl (2.5-4.0) 12/15/21 05:19 Albumin/Globulin Ratio 1.4 (0.9-2) 12/15/21 05:19 Lipase 100 U/L (11-82) H 12/13/21 22:50 25-OH Vitamin D Total 7.5 ng/ml (30-100) L 12/14/21 05:58 Procalcitonin 0.12 ng/ml (0-0.5) 12/14/21 05:58 Urine Color Dark Yellow 12/14/21 06:20 Urine Appearance Cloudy (Clear) A 12/14/21 06:20 Urine pH 5.5 (4.5-7.5) 12/14/21 06:20 Ur Specific [place]urel 1.028 (1.000-1.030) 12/14/21 06:20 Urine Protein 1+ (Negative) H 12/14/21 06:20 Urine Glucose (UA) Negative (Negative) 12/14/21 06:20 Urine Ketones Trace (Negative) H 12/14/21 06:20 Urine Blood 2+ (Negative) H 12/14/21 06:20 Urine Nitrite Positive (Negative) A 12/14/21 06:20 Urine Bilirubin Negative (Negative) 12/14/21 06:20 Urine Urobilinogen Negative (Negative) 12/14/21 06:20 Ur Leukocyte Esterase Trace (Negative) H 12/14/21 06:20 Urine WBC (Auto) >30 /hpf (0-5) H 12/14/21 06:20 Urine RBC (Auto) 10-30 /hpf (0-4) H 12/14/21 06:20 U Hyaline Cast (Auto) 5-10 /lpf (0-5) H 12/14/21 06:20 U Epithel Cells (Auto) 0-5 /lpf (0-5) 12/14/21 06:20 Urine Bacteria (Auto) 1+ (Negative) H 12/14/21 06:20 Urine Mucus Present (None Prsent) A 12/14/21 06:20 Urine Yeast Not Reportable 12/14/21 06:20 Hepatitis C Ab Screen Neg (Neg) 12/14/21 05:58 SARS-CoV-2, RNA, NAAT NEGATIVE (NEGATIVE) 12/13/21 21:43 Impressions Chest X-Ray 12/13/21 21:31 XR chest 1V portable CLINICAL HISTORY: Atypical chest pain TECHNIQUE: Single frontal radiograph of the chest was obtained. Comparison: Comparison is made to chest one view 10/22/20202018 FINDINGS: No lines and tubes are seen. The cardiomediastinal silhouette is normal. The lungs are clear. No evidence of pleural effusion or pneumothorax. IMPRESSION: No acute chest disease. ACT 112: Negative or not required by law. Electronically signed by: Puneet Rose M.D. 12/14/2021 8:50 AM Hip/Pelvis X-Ray 12/13/21 21:31 XR hip LT 2V w pelvis CLINICAL HISTORY: fall TECHNIQUE: 2 views of the left hip and single frontal view of the pelvis were obtained. Comparison: None available at the time of this dictation. FINDINGS: A femoral neck fracture is seen with impaction and apex lateral angulation of the fragments. The alignment is anatomic. Joint spaces are well-preserved. Hernia mesh is seen in the right lower pelvis. IMPRESSION: Status post left femoral neck fracture. ACT 112: Negative or not required by law. Electronically signed by: Puneet Rose M.D. 12/14/2021 8:[address] 12/13/21 23:43 CT OF THE HEAD WITHOUT CONTRAST CLINICAL HISTORY: head trauma, recent falls at home, confusion COMPARISON STUDY: No previous studies for comparison. CT DOSE: 789.33 mGy.cm TECHNIQUE: Helical axial images of the head were obtained without IV contrast. Automated exposure control was utilized for the study. A dose lowering techn ique was utilized adhering to the principles of ALARA. FINDINGS: No acute intracranial hemorrhage, midline shift or mass effect is present. White matter hypodensity suggests small vessel disease. The ventricular system is unremarkable. The basal cisterns are patent. No extra-axial collections are present. There are no findings to suggest acute dural sinus thrombosis or acute territorial infarct. No significant calvarial abnormalities are present. Visualized portions of the sinuses and mastoid air cells are clear. IMPRESSION: 1. No acute intracranial findings. 2. No acute calvarial fracture. ACT 112: Negative or not required by law. Electronically signed by: Mike Gifford M.D. 12/14/2021 6:47 AM Hip X-Ray 12/15/21 15:30 FL hip LT 2-3V CLINICAL HISTORY: LT TROCH NAIL TECHNIQUE: 4 views were obtained with the C-arm in the OR with the above procedure. Total fluoroscopy time was 107.7 seconds. Total skin dose was 20.94 mGy. Comparison: None available at the time of this dictation. FINDINGS/IMPRESSION: Intraoperative images were obtained of left femoral trochanteric nail placement. Please correlate with intraoperative fluoroscopy and operative report. ACT 112: Negative or not required by law. Electronically signed by: Puneet Rose M.D. 12/15/2021 5:52 PM (1) Closed fracture of left hip Encounter type: initial encounter Qualified Code(s): S72.002A - Fracture of unspecified part of neck of left femur, initial encounter for closed fracture
[2021-12-16] MEDS: ceFAZolin 2000MG 2,000 MG/15 ML SYR IV SCH (09:24)
[2021-12-16] MEDS: cefTRIAXone SODIUM 1,000 MG in DEXTROSE 5% 50 ML IV SCH (09:26)
[2021-12-16] MEDS: ASPIRIN 81 MG ECTAB PO SCH ×2 (09:27→20:51)
[2021-12-16] MEDS: buPROPion XL 300 MG TABCR PO SCH (09:27)
[2021-12-16] MEDS: DOCUSATE SODIUM 100 MG CAP PO SCH ×2 (09:27→20:51)
[2021-12-16] MEDS: FLUTICASONE/VILANTEROL 200/25MCG 14 PUFFS/INHALER INH SCH (09:28)
[2021-12-16] MEDS: LOSARTAN POTASSIUM 25 MG TAB PO SCH (09:28)
[2021-12-16] MEDS: FLUoxetine HCL 20 MG CAP PO SCH (09:28)
[2021-12-16] MEDS: MULTIVITAMIN TAB PO SCH (09:28)
[2021-12-16] MEDS: oxyCODONE HCL IR 5 MG TAB (IMMEDIATE RELEASE) PO PRN ×3 (09:36→19:28)
[2021-12-16] MEDS: ALBUT/IPRATROP 3MG/0.5MG NEB 3 ML VIAL INH SCH ×3 (11:14→19:50)
--- NOTE | 2021-12-16 11:21 | Hospitalist Progress Note ---
Date of Service December 16, 2021 Assessment & Plan (1) Closed fracture of left hip: Plan: Betzaida is a 66 yo M with a history of COPD, HTN, BPH, MDD, who was transported to [facility] via ALS following a fall down 2 icy steps and landing on his left side. He received IV fluids prior to arrival. Unremarkable EKG, Head CT w/o contrast. X-ray Hip/Pelvis positive for closed fracture of L hip; to have surgery today (12/15). Closed fracture of left hip - status post fall 2 icy steps (+) landing on left side and hitting head (-) visible head trauma, LOC - L hip fracture with impaction and angulation - s/p femoral nailing. - Pain: 02/11, Acetaminophen 1g q8, Dilaudid 0.5mg IV q4h PRN until post procedure - Velazquez catheter - PT/OT ordered for after procedure Confusion - reported by ; she noted that pt has had decreased energy, increased confusion, and has fallen over the last couple days + stated that this is consistent with prior UTIs. - pt does not appear confused at this time - Unremarkable Head CT w/o contrast, Chest X-Ray - Urine cx with more than 3 organism. abx d/jacinto Dizziness - pt reports 2wk hx of dizziness upon standing up - unable to assess at this point in the setting of L hip fracture - Unremarkable. EKG, Head CT w/o contrast, Chest X-Ray - suspecting for orthostatic etiology; consider exacerbation by Olanzapine, Perphenazine, infection. - report of pt taking Tamsulosin, however pt reports he has not been taking this medication for some time. Vitamin D deficiency - Replace vitamin D with 2000units daily COPD - continue Breo Ellipta, home inhaler - added Duo-neb QID Hypertension - stable, 122/79 this AM - continue Losartan BPH - not currently on medications - previously was on Finasteride and Tamsulosin, unsure why it was stopped. - Potentially related to dizziness episode. MDD - continue home meds (olanzapine, fluoxetine, Wellbutrin, perphenazine) Code: DNR/DNI DVT ppx: SCDs until procedure Diet: low sodium (2) COPD (chronic obstructive pulmonary disease): (3) MDD (major depressive disorder): (4) Confusion: (5) Fall: (6) Encounter for pre-operative examination: (7) High blood pressure: (8) BPH without urinary obstruction: Admission and Anticipated Discharge Date Admission Date: December 13, 2021 Supervising Physician Co-Signing Physician Notes Resident Physician Supervision Note: I independently interviewed and examined the patient and verified the casillas history and physical, reviewed labs and image studies and agree with resident Dr. Ayala findings and care plan Subjective Overall Mr. Mandujano was feeling, "better". He notes his pain is 4/10 at the left hip. he had no questions for me this morning. Review of Systems Review of Systems: Constitutional: denies fever, chills Cardiac: denies chest pain, palpitations GI: denies nausea, vomiting Pulm.: denies cough, shortness of breath Physical Exam Constitutional: well developed and well nourished; no acute distress Eyes: PERRL, conjunctivae normal, anicteric sclerae ENMT: external ear and nose normal, oropharynx normal Neck: normal visual inspection Respiratory: - no increased work of breathing or accessory muscle use - able to speak in full sentences - coarse wheezes appreciated on exam Cardiovascular: RRR, no murmur, no edema Gastrointestinal (Abdomen): normal bowel sounds, soft, nontender, no hepatosplenomegaly Musculoskeletal: no cyanosis or clubbing, extremities motor strength 5/5 Skin: no rashes, warm and dry Neurologic: no focal motor deficits Psychiatric: A+Ox3, euthymic affect Results & Data Results & Data ([facility]) Vital Signs (Past 12 Hours) Vital Signs Temp Pulse Pulse Resp BP Pulse Ox 12/16/21 11:14 112 H 20 98 12/16/21 07:13 36.8 C 98 H 16 122/79 95 12/16/21 03:31 37.4 C 111 H 18 109/76 92 (1) Fall Encounter type: initial encounter Qualified Code(s): W19.XXXA - Unspecified fall, initial encounter (2) Closed fracture of left hip Encounter type: initial encounter Qualified Code(s): S72.002A - Fracture of unspecified part of neck of left femur, initial encounter for closed fracture
[2021-12-16] MEDS: PERPHENAZINE 2 MG TABLET PO SCH (20:51)
[2021-12-16] MEDS: OLANZapine 10 MG TAB PO SCH (20:51)
[2021-12-17] MEDS: HYDROmorphone INJ 0.5 MG/0.5 ML SYR IV PRN ×2 (00:49→22:28)
--- NOTE | 2021-12-17 06:28 | Orthopedic Progress Note ---
Date of Service December 17, 2021 Assessment & Plan (1) Closed fracture of left hip: Plan: POD #2 s/p Left Trochanteric Femoral Nailing PT/OT dvt prop with LUKASZ/SCD/ASA TTWB left lower leg pain currently well controlled PT recommends continued PT poss SNF at time of discharge Admission and Anticipated Discharge Date Admission Date: December 13, 2021 Subjective POD #2 s/p Left Trochanteric Femoral Nailing Review of Systems Constitutional: no fever and no chills Respiratory: no cough and no dyspnea Cardiovascular: no chest pain, no dyspnea and no orthopnea Gastrointestinal: no abdominal pain, no nausea and no vomiting Physical Exam Physical Exam: Vital Signs Temp 36.6 C 12/16/21 22:54 Pulse 101 H 12/16/21 22:54 Resp 18 12/16/21 22:54 BP 104/68 12/16/21 22:54 Pulse Ox 95 12/16/21 22:54 Intake & Output 12/16/21 12/16/21 12/17/21 06:59 18:59 06:59 Intake Total 999 / 0 425 / 845 420 / 845 Output Total 525 / 1150 375 / 1125 750 / 1125 Balance 475 / 900 50 / -280 -330 / -280 Intake: IV 1000 / 1050 50 / 50 Sodium Chlorid e 0.9% 1000ML 1, 1000 / 1000 000 ml @ 80 ml s/hr IV .[id number] [facility] Rx#:[id number] cefTRIAXone SO DIUM 1,000 mg In 50 / 50 Dextrose 5% 50 ml @ 100 mls/hr IV DAILY JONATAN R x#:[id number] Oral 375 / 795 420 / 795 Output: Estimated Blood Loss 125 / 125 Urine Amount (Ca theter) 525 / 1025 250 / 1000 750 / 1000 Velazquez/Indwelli ng 525 / 1025 250 / 1000 750 / 1000 Constitutional: WD/WN, vitals as above Musculoskeletal: Left Hip: dressing pulled back to exam left hip incision, skin edges are intact with pete. no erythema or drainage noted. anterior thigh soft, mild tenderness. distal incisions clean and dry, mild bloody drai nage on dressing but no active bleeding or drainage noted. calf SNT, DP palpable. he is able to wiggle toes, plantar and dorsiflex his ankle. Results & Data ([facility]) Vital Signs (Past 12 Hours) Vital Signs Temp Pulse Pulse Resp BP Pulse Ox 12/16/21 22:54 36.6 C 101 H 18 104/68 95 12/16/21 19:50 104 H 16 93 (1) Closed fracture of left hip Encounter type: initial encounter Qualified Code(s): S72.002A - Fracture of unspecified part of neck of left femur, initial encounter for closed fracture
--- NOTE | 2021-12-17 06:51 | Hospitalist Progress Note ---
Date of Service December 17, 2021 Assessment & Plan (1) Confusion: Plan: Betzaida is a 66 yo M with a history of COPD, HTN, BPH, MDD, who was transported to [facility] via ALS following a fall down 2 icy steps and landing on his left side. He received IV fluids prior to arrival. Unremarkable EKG, Head CT w/o contrast. X-ray Hip/Pelvis positive for closed fracture of L hip; to have surgery today (12/15). Closed fracture of left hip - status post fall 2 icy steps (+) landing on left side and hitting head (-) visible head trauma, LOC - L hip fracture with impaction and angulation - s/p femoral nailing. - Pain: 02/11, Acetaminophen 1g q8, Dilaudid 0.5mg IV q4h PRN until post procedure - Velazquez catheter - PT/OT Confusion - resolved - reported by ; she noted that pt has had decreased energy, increased confusion, and has fallen over the last couple days + stated that this is consistent with prior UTIs. - pt does not appear confused at this time - Unremarkable Head CT w/o contrast, Chest X-Ray - Urine cx with more than 3 organism. abx d/jacinto Acute blood loss anemia - about 6 units loss since admission - tachycardia noted - h/h stable since yesterday. - has h/o orthostasis. - follow closely. Tachycardia - Likely from blood loss and underlying h/o orthostasis - consider checking cortisol level if remains tachycardic - follow Dizziness - pt reports 2wk hx of dizziness upon standing up - unable to assess at this point in the setting of L hip fracture - Unremarkable. EKG, Head CT w/o contrast, Chest X-Ray - suspecting for orthostatic etiology; consider exacerbation by Olanzapine, Perphenazine, infection. - report of pt taking Tamsulosin, however pt reports he has not been taking this medication for some time. Vitamin D deficiency - Replace vitamin D with 2000units daily COPD - continue Breo Ellipta, home inhaler - added Duo-neb QID Hypertension - stable, 122/79 this AM - continue Losartan BPH - not currently on medications - previously was on Finasteride and Tamsulosin, unsure why it was stopped. - Potentially related to dizziness episode. MDD - continue home meds (olanzapine, fluoxetine, Wellbutrin, perphenazine) Code: DNR/DNI DVT ppx: LUKASZ/SCD/ASA Diet: low sodium Dispo: insurance auth. sent for rehab (2) MDD (major depressive disorder): (3) COPD (chronic obstructive pulmonary disease): (4) Closed fracture of left hip: (5) Fall: (6) Encounter for pre-operative examination: (7) High blood pressure: (8) BPH without urinary obstruction: Admission and Anticipated Discharge Date Admission Date: December 13, 2021 Supervising Physician Co-Signing Physician Notes Resident Physician Supervision Note: I independently interviewed and examined the patient and verified the casillas history and physical, reviewed labs and image studies and agree with resident Dr. Ayala findings and care plan Subjective Betzaida Mandujano was doing well today. He had no pain unless he was moving. Review of Systems Review of Systems: Constitutional: denies fever, chills Cardiac: denies chest pain, palpitations GI: admits nausea denies vomiting Pulm.: denies cough, shortness of breath Physical Exam Constitutional: well developed and well nourished; no acute distress Eyes: PERRL, conjunctivae normal, anicteric sclerae ENMT: external ear and nose normal, oropharynx normal Neck: normal visual inspection Cardiovascular: RRR, no murmur, no edema Gastrointestinal (Abdomen): normal bowel sounds, soft, nontender, no hepatosplenomegaly Musculoskeletal: no cyanosis or clubbing, extremities motor strength 5/5 Skin: no rashes, warm and dry Neurologic: no focal motor deficits Psychiatric: A+Ox3, euthymic affect Results & Data Results & Data ([facility]) Vital Signs (Past 12 Hours) Vital Signs Temp Pulse Pulse Resp BP Pulse Ox 12/16/21 22:54 36.6 C 101 H 18 104/68 95 12/16/21 19:50 104 H 16 93 (1) Fall Encounter type: initial encounter Qualified Code(s): W19.XXXA - Unspecified fall, initial encounter (2) Closed fracture of left hip Encounter type: initial encounter Qualified Code(s): S72.002A - Fracture of unspecified part of neck of left femur, initial encounter for closed fracture
[2021-12-17] MEDS: ALBUT/IPRATROP 3MG/0.5MG NEB 3 ML VIAL INH SCH ×2 (07:30→11:19)
[2021-12-17 08:42] LABS: Basophils # (auto) 0.04 K/uL (0-0.2); Basophils % (auto) 0.3 %; Eosinophils # (auto) 0.31 K/uL (0-0.5); Eosinophils % (auto) 2.2 %; Hematocrit (blood only) 25.2 % (42-52); Hemoglobin 8.6 g/dL (14.0-18.0); Immature Granulocytes % (auto) 0.7 %; Lymphocytes # (auto) 1.73 K/uL (1.2-3.4); Lymphocytes % (auto) 12.5 %; Mean Corpuscular Hgb Conc 34.1 g/dL (32-36); Mean Platelet Volume 9.1 fL (7.4-10.4); Monocytes # (auto) 1.44 K/uL (0.11-0.59); Monocytes % (auto) 10.4 %; Neutrophils # (auto) 10.25 K/uL (1.4-6.5); Neutrophils % (auto) 73.9 %; Platelet Count 275 K/uL (130-400); RDW Coefficient of Variation 14.5 % (11.5-14.5); RDW Standard Deviation 47.8 fL (36.4-46.3); Red Blood Count 2.77 M/uL (4.7-6.1); White Blood Count 13.87 K/uL (4.8-10.8)
[2021-12-17 09:03] LABS: BUN Creatinine Ratio 43.7 (10-20); Calcium 7.7 mg/dl (8.5-10.1); Creatinine Clr Calc Pharmacy 110.2 ml/min; Est GFR (African American) 114.9 ml/min; Est GFR (Non-African American) 99.2 ml/min; Potassium 3.7 mmol/L (3.5-5.1)
[2021-12-17] MEDS: buPROPion XL 300 MG TABCR PO SCH (09:03)
[2021-12-17] MEDS: ASPIRIN 81 MG ECTAB PO SCH ×2 (09:03→19:58)
[2021-12-17] MEDS: DOCUSATE SODIUM 100 MG CAP PO SCH ×2 (09:03→19:58)
[2021-12-17] MEDS: FLUTICASONE/VILANTEROL 200/25MCG 14 PUFFS/INHALER INH SCH (09:04)
[2021-12-17] MEDS: MULTIVITAMIN TAB PO SCH (09:04)
[2021-12-17] MEDS: FLUoxetine HCL 20 MG CAP PO SCH (09:04)
[2021-12-17] MEDS: LOSARTAN POTASSIUM 25 MG TAB PO SCH (09:04)
[2021-12-17] MEDS: oxyCODONE HCL IR 5 MG TAB (IMMEDIATE RELEASE) PO PRN ×3 (10:05→19:58)
[2021-12-17] MEDS: CHOLECALCIFEROL 1,000 UNITS 25 MCG TAB PO SCH (11:03)
[2021-12-17] MEDS: ONDANSETRON INJ 2 MG/ML 2 ML VIAL IV PRN (17:48)
[2021-12-17] MEDS: PERPHENAZINE 2 MG TABLET PO SCH (19:57)
[2021-12-17] MEDS: OLANZapine 10 MG TAB PO SCH (19:58)
[2021-12-18 07:21] LABS: Basophils # (auto) 0.06 K/uL (0-0.2); Basophils % (auto) 0.5 %; Eosinophils # (auto) 0.42 K/uL (0-0.5); Eosinophils % (auto) 3.3 %; Hematocrit (blood only) 23.6 % (42-52); Immature Granulocytes # (auto) 0.16 K/uL (0.00-0.02); Immature Granulocytes % (auto) 1.3 %; Lymphocytes # (auto) 1.72 K/uL (1.2-3.4); Lymphocytes % (auto) 13.5 %; Mean Corpuscular Hgb Conc 33.9 g/dL (32-36); Mean Corpuscular Volume 91.5 fL (80-100); Mean Platelet Volume 8.9 fL (7.4-10.4); Monocytes # (auto) 1.13 K/uL (0.11-0.59); Monocytes % (auto) 8.9 %; Neutrophils # (auto) 9.22 K/uL (1.4-6.5); Neutrophils % (auto) 72.5 %; Platelet Count 284 K/uL (130-400); RDW Coefficient of Variation 14.6 % (11.5-14.5); RDW Standard Deviation 47.8 fL (36.4-46.3); Red Blood Count 2.58 M/uL (4.7-6.1); White Blood Count 12.71 K/uL (4.8-10.8)
--- NOTE | 2021-12-18 07:37 | Hospitalist Progress Note ---
Date of Service December 18, 2021 Assessment & Plan (1) Confusion: Plan: Betzaida is a 66 yo M with a history of COPD, HTN, BPH, MDD who presented following a fall down 2 icy steps, resulting in closed L hip fracture. He is s/p surgery on 12/15/21. Closed fracture of left hip - L hip fracture with impaction and angulation - s/p femoral nail 12/15/21 - Pain: 4/10, Acetaminophen 1g q8, Dilaudid 0.5mg IV q4h PRN until post procedure - Velazquez catheter - PT/OT Confusion - resolved - reported by ; she noted that pt has had decreased energy, increased confusion, and has fallen over the last couple days + stated that this is consistent with prior UTIs. - pt does not appear confused at this time - Unremarkable Head CT w/o contrast, Chest X-Ray - Urine cx with more than 3 organism. abx d/c'ed Acute blood loss anemia - tachycardia noted - w/ downtrending H/H to Hb of 8.0 and subj lightheadedness, transfused 1u prbc w/ slight improvement in tachycardia - has h/o orthostasis. - follow cbc Dizziness - pt reports 2wk hx of dizziness upon standing up - unable to assess at this point in the setting of L hip fracture - Unremarkable. EKG, Head CT w/o contrast, Chest X-Ray - suspecting for orthostatic etiology; consider exacerbation by Olanzapine, Perphenazine, infection. - report of pt taking Tamsulosin, however pt reports he has not been taking this medication for some time. Vitamin D deficiency - Replace vitamin D with 2000units daily COPD - continue Breo Ellipta, home inhaler - added Duo-neb QID Hypertension - stable, continue Losartan BPH - not currently on medications - previously was on Finasteride and Tamsulosin, unsure why it was stopped. - Potentially related to dizziness episode. MDD - continue home meds (olanzapine, fluoxetine, Wellbutrin, perphenazine) Code: DNR/DNI DVT ppx: SCD/ASA Diet: low sodium Dispo: med/surg. Tentatively [facility] rehab on 12/20/21 (2) MDD (major depressive disorder): (3) COPD (chronic obstructive pulmonary disease): (4) Closed fracture of left hip: (5) Fall: (6) Encounter for pre-operative examination: (7) High blood pressure: (8) BPH without urinary obstruction: Admission and Anticipated Discharge Date Admission Date: December 13, 2021 Supervising Physician Co-Signing Physician Notes I personally examined the patient and verified all casillas points of history and exam, discussed case, and agree with decision making with Dr Devine feeling ok overall but does endorse feeling lightheaded when he gets up with therapy vitals noted nad heent nc at mmm breathing unlabored no accessory muscles good effort skin no rashes no pallor or icterus hip fx -PT/OT, pain control, outpt bone health w/u acute blood loss anemia -related to above -w Hgb 8 and orthostatic sx, will transfuse 1 unit and follow for rehab once available otherwise as above Subjective 7/10 L hip pain radiates to knee. Tolerable w/ pain meds. Having some difficulty urinating, last voided last night. Denies other symptoms. Update in AM: +subj lightheadedness, mild. Review of Systems Review of Systems: All systems reviewed & are unremarkable except as noted in HPI & below Physical Exam Physical Exam: General: Grossly A&O. NAD. Cooperative. HEENT: Atraumatic, normocephalic. Pulm: CTAB anteriorly. -wheezes, -rales, -rhonchi. No respiratory distress. Cardiac: RRR, -mrg. No LE edema. Abdominal: Nontender, nondistended, soft. Results & Data Results & Data ([facility]) Vital Signs (Past 12 Hours) Vital Signs 95/63 bp x1. 90-91 on room air. HR ~100. afeb. Temp Pulse Resp BP Pulse Ox 12/17/21 22:13 37.1 C 107 H 18 112/72 91 Laboratory Results Na 133 stable. K 3.8. Corrected Ca 8.5. leukocytosis 12.71, stable/downtrending. Hb downtrending. ->8.0. Resident Activity Tracking Resident Involvement: Resident Care Provided Care Provided: Adult Hospital Medicine (1) Fall Encounter type: initial encounter Qualified Code(s): W19.XXXA - Unspecified fall, initial encounter (2) Closed fracture of left hip Encounter type: initial encounter Qualified Code(s): S72.002A - Fracture of unspecified part of neck of left femur, initial encounter for closed fracture
[2021-12-18 07:45] LABS: BUN Creatinine Ratio 40.6 (10-20); Calcium 7.8 mg/dl (8.5-10.1); Creatinine Clr Calc Pharmacy 122.3 ml/min; Est GFR (African American) 119.9 ml/min; Est GFR (Non-African American) 103.5 ml/min; Potassium 3.8 mmol/L (3.5-5.1)
[2021-12-18 08:22] LABS: Albumin Globulin Ratio 1.3 (0.9-2); Albumin Level 3.1 gm/dl (3.4-5.0); Bilirubin,Total 0.5 mg/dl (0.2-1.0); Globulin 2.4 gm/dl (2.5-4.0); Total Protein 5.5 gm/dl (6.0-8.3)
[2021-12-18] MEDS: oxyCODONE HCL IR 5 MG TAB (IMMEDIATE RELEASE) PO PRN ×3 (09:00→19:51)
[2021-12-18] MEDS: FLUTICASONE/VILANTEROL 200/25MCG 14 PUFFS/INHALER INH SCH (09:05)
[2021-12-18] MEDS: ASPIRIN 81 MG ECTAB PO SCH ×2 (09:06→20:35)
[2021-12-18] MEDS: buPROPion XL 300 MG TABCR PO SCH (09:06)
[2021-12-18] MEDS: LOSARTAN POTASSIUM 25 MG TAB PO SCH (09:07)
[2021-12-18] MEDS: FLUoxetine HCL 20 MG CAP PO SCH (09:09)
[2021-12-18] MEDS: DOCUSATE SODIUM 100 MG CAP PO SCH ×2 (09:09→20:36)
[2021-12-18] MEDS: CHOLECALCIFEROL 1,000 UNITS 25 MCG TAB PO SCH (09:09)
[2021-12-18] MEDS: MULTIVITAMIN TAB PO SCH (09:09)
[2021-12-18] MEDS ORDERED: SODIUM CHLORIDE 0.9% 250 ML IV PRN (12:45)
[2021-12-18] MEDS ORDERED: POLYETHYLENE (MIRALAX) 17 GM PACK PO PRN (12:59)
--- NOTE | 2021-12-18 16:42 | Billing Data ---
Date of Service December 18, 2021 Coding Level of Care Code 22400 Subseq Hosp Care Lvl 2
[2021-12-18] MEDS ORDERED: POTASSIUM CHLORIDE CRTAB 20 MEQ TABCR PO STA (18:21)
[2021-12-18] MEDS: PERPHENAZINE 2 MG TABLET PO SCH (20:36)
[2021-12-18] MEDS: OLANZapine 10 MG TAB PO SCH (20:36)
[2021-12-19] MEDS: oxyCODONE HCL IR 5 MG TAB (IMMEDIATE RELEASE) PO PRN ×4 (01:46→23:14)
[2021-12-19 06:39] LABS: Basophils # (auto) 0.05 K/uL (0-0.2); Basophils % (auto) 0.5 %; Eosinophils # (auto) 0.51 K/uL (0-0.5); Eosinophils % (auto) 4.7 %; Hematocrit (blood only) 26.8 % (42-52); Hemoglobin 9.1 g/dL (14.0-18.0); Immature Granulocytes # (auto) 0.18 K/uL (0.00-0.02); Immature Granulocytes % (auto) 1.6 %; Lymphocytes # (auto) 1.61 K/uL (1.2-3.4); Lymphocytes % (auto) 14.7 %; Mean Corpuscular Hemoglobin 30.8 pg (25-34); Mean Corpuscular Volume 90.8 fL (80-100); Mean Platelet Volume 9.1 fL (7.4-10.4); Monocytes # (auto) 1.29 K/uL (0.11-0.59); Monocytes % (auto) 11.8 %; Neutrophils # (auto) 7.32 K/uL (1.4-6.5); Neutrophils % (auto) 66.7 %; Nucleated RBC # (auto) 0.04 K/uL (0-0); Nucleated RBC % (auto) 0.3 %; Platelet Count 321 K/uL (130-400); RDW Coefficient of Variation 14.9 % (11.5-14.5); RDW Standard Deviation 48.2 fL (36.4-46.3); Red Blood Count 2.95 M/uL (4.7-6.1); White Blood Count 10.96 K/uL (4.8-10.8)
[2021-12-19 06:55] LABS: Albumin Globulin Ratio 1.2 (0.9-2); Albumin Level 3.2 gm/dl (3.4-5.0); BUN Creatinine Ratio 31.1 (10-20); Bilirubin,Total 0.8 mg/dl (0.2-1.0); Calcium 8.1 mg/dl (8.5-10.1); Creatinine Clr Calc Pharmacy 128.3 ml/min; Est GFR (African American) 122.3 ml/min; Est GFR (Non-African American) 105.5 ml/min; Globulin 2.6 gm/dl (2.5-4.0); Magnesium 2.1 mg/dl (1.7-2.4); Total Protein 5.8 gm/dl (6.0-8.3)
--- NOTE | 2021-12-19 07:35 | Hospitalist Progress Note ---
Date of Service December 19, 2021 Assessment & Plan (1) Confusion: Plan: Betzaida is a 66 yo M with a history of COPD, HTN, BPH, MDD who presented following a fall down 2 icy steps, resulting in closed L hip fracture. He is s/p surgery on 12/15/21. Closed fracture of left hip - L hip fracture with impaction and angulation - s/p femoral nail 12/15/21 - Pain: 4/10, Acetaminophen 1g q8, Dilaudid 0.5mg IV q4h PRN until post procedure - Velazquez catheter - PT/OT Confusion - resolved - reported by ; she noted that pt has had decreased energy, increased confusion, and has fallen over the last couple days + stated that this is consistent with prior UTIs. - pt does not appear confused at this time - Unremarkable Head CT w/o contrast, Chest X-Ray - Urine cx with more than 3 organism. abx d/c'ed Cough, mild - trial mucous clearance therapies; flutter valve and hypertonic saline neb. Acute blood loss anemia - tachycardia noted - w/ downtrending H/H to Hb of 8.0 and subj lightheadedness, transfused 1u prbc on 12/18/21 w/ slight improvement in tachycardia - has h/o orthostasis. - follow cbc Dizziness - pt reports 2wk hx of dizziness upon standing up - unable to assess at this point in the setting of L hip fracture - Unremarkable. EKG, Head CT w/o contrast, Chest X-Ray - suspecting for orthostatic etiology; consider exacerbation by Olanzapine, Perphenazine, infection. - report of pt taking Tamsulosin, however pt reports he has not been taking this medication for some time. Vitamin D deficiency - Replace vitamin D with 2000units daily COPD - continue Breo Ellipta, home inhaler - added Duo-neb QID Hypertension - stable, continue Losartan BPH - not currently on medications - previously was on Finasteride and Tamsulosin, unsure why it was stopped. - Potentially related to dizziness episode. MDD - continue home meds (olanzapine, fluoxetine, Wellbutrin, perphenazine) Code: DNR/DNI DVT ppx: SCD/ASA Diet: low sodium Dispo: med/surg. Tentatively [facility] rehab on 12/20/21 (2) MDD (major depressive disorder): (3) COPD (chronic obstructive pulmonary disease): (4) Closed fracture of left hip: (5) Fall: (6) Encounter for pre-operative examination: (7) High blood pressure: (8) BPH without urinary obstruction: Admission and Anticipated Discharge Date Admission Date: December 13, 2021 Supervising Physician Co-Signing Physician Notes I personally examined the patient and verified all casillas points of history and exam, discussed case, and agree with decision making with Dr Devine feeling ok overall and lightheadednss now gone vitals noted nad heent nc at mmm breathing unlabored no accessory muscles good effort skin no rashes no pallor or icterus hip fx -PT/OT, pain control, outpt bone health w/u, for rehab hopefully tomorrow acute blood loss anemia -related to above -transfused 1 unit PRBC. for rehab once available (hpoefully tomorrow) otherwise as above Subjective Doing well. No complaints. Mild mucousy sounding cough. Review of Systems Review of Systems: All systems reviewed & are unremarkable except as noted in HPI & below Physical Exam Physical Exam: General: Grossly A&O. NAD. Cooperative. HEENT: Atraumatic, normocephalic. Pulm: CTAB anteriorly. -wheezes, -rales, -rhonchi. + transmitted upper airway so unds. No respiratory distress. Cardiac: RRR, -mrg. No LE edema. Abdominal: Nontender, nondistended, soft. Results & Data Results & Data ([facility]) Vital Signs (Past 12 Hours) Vital Signs HRs 90s-100. 92-93 on RA Temp Pulse Resp BP Pulse Ox 12/18/21 23:00 36.7 C 90 18 114/71 92 Laboratory Results wbc downtrending 15.06->->->10.96. Hb stable 9.1. Na 133 stable. Resident Activity Tracking Resident Involvement: Resident Care Provided Care Provided: Adult Hospital Medicine (1) Fall Encounter type: initial encounter Qualified Code(s): W19.XXXA - Unspecified fall, initial encounter (2) Closed fracture of left hip Encounter type: initial encounter Qualified Code(s): S72.002A - Fracture of unspecified part of neck of left femur, initial encounter for closed fracture
[2021-12-19] MEDS: ASPIRIN 81 MG ECTAB PO SCH ×2 (08:30→21:08)
[2021-12-19] MEDS: FLUTICASONE/VILANTEROL 200/25MCG 14 PUFFS/INHALER INH SCH (08:30)
[2021-12-19] MEDS: FLUoxetine HCL 20 MG CAP PO SCH (08:30)
[2021-12-19] MEDS: MULTIVITAMIN TAB PO SCH (08:30)
[2021-12-19] MEDS: LOSARTAN POTASSIUM 25 MG TAB PO SCH (08:30)
[2021-12-19] MEDS: CHOLECALCIFEROL 1,000 UNITS 25 MCG TAB PO SCH (08:30)
[2021-12-19] MEDS: buPROPion XL 300 MG TABCR PO SCH (08:30)
[2021-12-19] MEDS: DOCUSATE SODIUM 100 MG CAP PO SCH ×2 (08:30→21:08)
[2021-12-19] MEDS: ALBUT/IPRATROP 3MG/0.5MG NEB 3 ML VIAL INH PRN (11:25)
[2021-12-19] MEDS: ONDANSETRON INJ 2 MG/ML 2 ML VIAL IV PRN (12:35)
--- NOTE | 2021-12-19 18:04 | Billing Data ---
Date of Service December 19, 2021 Coding Level of Care Code 06807 Subseq Hosp Care Lvl 2
[2021-12-19] MEDS: PERPHENAZINE 2 MG TABLET PO SCH (21:07)
[2021-12-19] MEDS: SODIUM CHLOR 7% 4 ML NEB NEB SCH (21:07)
[2021-12-19] MEDS: OLANZapine 10 MG TAB PO SCH (21:08)
--- NOTE | 2021-12-20 06:38 | Discharge Summary ---
Date of Service December 20, 2021 Admission HPI Per Admitting Provider Betzaida is a 66-year-old male with a history of HTN, BPH, COPD, MDD who presented to [facility] following a fall down 2 icy steps onto his left side. He noted that because of the pain, he was having difficulty getting up and was unable to walk. He said he hit his head, but "it didn't hurt" and de nies LOC. In route, he was put into a pelvic binder, which aided with some of his pain. In speaking with his , who is at the bedside, she notes that patient has been reportedly more confusedappearing over the last several days; she notes that he has fallen several times, which is not typical for him. She says that this is happened in the past when he has gotten UTI. They deny any fevers, chills, night sweats. Denies any nausea or vomiting. Denies any urinary symptoms, including dysuria/frequency/urgency. No pulmonary or chest symptoms. No recent or major changes in medications. Medications were reviewed, which include: losartan, wingspan, fluoxetine, Wellbutrin, perphenazine, Symbicort. Socially, he does endorse utilizing about half a pack per day "for as long as I can remember." He was treated for COPD and uses Symbicort daily; there is recently been discussions to upgrade this to another inhaler. Denies any recent or past use of alcohol. Denies any use of any recreational drugs. Upon arrival in the ER, vital signs were found to be normal with HR in low 90s. Laboratories were significant for a mildly elevated white count to 13.4 with neutrophilic predominance but no evidence of anemia, BMP normal. ALP mildly elevated at 156. Lipase noted at 100. INR normal -- not on anticoagulation. X- ray of the hip did demonstrate a dislocated, oblique-appearing subtrochanteric fracture of the left femur. Chest x-ray was not significant for any acute abnormalities. Covid negative. Emergency provider spoke with the on-call orthopedist, who did indicate hey will proceed with the surgery likely tomorrow. Admission Exam Per Admitting Provider General: Tired but well-appearing 66-year-old gentleman no acute distress HEENT: NCAT. - Eyes - Sclera are white, anicteric, and without injection. PERRL. - Mouth - MMM with no tonsillar edema or exudates. - Neck - supple and without LAD. Thyroid - no appreciable goiter or nodules. Cardiac: Normal rate and regular rhythm; S1 and S2 present with no murmurs, rubs, or gallops. Pulmonary: Good respiratory effort with symmetric expansion of the chest. No use of accessory muscles. Lungs were clear to auscultation bilaterally with no crackles or wheezes. Abdominal: Normoactive bowel sounds. Abdomen was soft, nondistended, and non- tender to palpation. Extremities: Hip is in a brace at this time. There is protuberance appreciated over the left hip but is not associated with any pain. Ankle and toe range if motion are full. Sensation to light touch is grossly intact bilaterally. Dorsalis pedis pulse 2+ bilaterally. Capillary refill under 3 seconds. Psych: Well-developed, well-nourished, appropriately dressed for occasion. Behavior is cooperative and appropriate. Affect is WNL. Insight is appropriate. Principal Diagnosis left hip fracture Discharge Exam General: Grossly A&O. NAD. Cooperative. Appears fatigued. HEENT: Atraumatic, normocephalic. Pulm: Lungs w/ mild-mod diffuse exp rhonchi. No respiratory distress. Cardiac: Regular rhythm, HR in 90s, -mrg. No LE edema. Abdominal: Nontender, nondistended, soft. Integ: L hip bandage is c/d/i Discharge Data Allergies Allergy/AdvReac Type Severity Reaction Status Date / Time No Known Allergies Allergy Verified 12/14/21 00:15 Consultations 12/13/21 22:42 ED Decision to Admit Stat 12/13/21 22:56 Consult Orthopedic Surgery Routine Procedures Performed Operation Date: 12/15/21 08:40 Actual Procedures p Left Trochanteric Femoral Nailing(Left) - Solomon Blum M.D. Ordered Studies 12/20/21 05:41 12/19/21 05:50 Chest X-Ray 12/13/21 21:31 XR chest 1V portable CLINICAL HISTORY: Atypical chest pain TECHNIQUE: Single frontal radiograph of the chest was obtained. Comparison: Comparison is made to chest one view 10/22/20202018 FINDINGS: No lines and tubes are seen. The cardiomediastinal silhouette is normal. The lungs are clear. No evidence of pleural effusion or pneumothorax. IMPRESSION: No acute chest disease. ACT 112: Negative or not required by law. Electronically signed by: Puneet Rose M.D. 12/14/2021 8:50 AM Hip/Pelvis X-Ray 12/13/21 21:31 XR hip LT 2V w pelvis CLINICAL HISTORY: fall TECHNIQUE: 2 views of the left hip and single frontal view of the pelvis were obtained. Comparison: None available at the time of this dictation. FINDINGS: A femoral neck fracture is seen with impaction and apex lateral angulation of the fragments. The alignment is anatomic. Joint spaces are well-preserved. Hernia mesh is seen in the right lower pelvis. IMPRESSION: Status post left femoral neck fracture. ACT 112: Negative or not required by law. Electronically signed by: Puneet Rose M.D. 12/14/2021 8:[address] 12/13/21 23:43 CT OF THE HEAD WITHOUT CONTRAST CLINICAL HISTORY: head trauma, recent falls at home, confusion COMPARISON STUDY: No previous studies for comparison. CT DOSE: 789.33 mGy.cm TECHNIQUE: Helical axial images of the head were obtained without IV contrast. Automated exposure control was utilized for the study. A dose lowering technique was utilized adhering to the principles of ALARA. FINDINGS: No acute intracranial hemorrhage, midline shift or mass effect is present. White matter hypodensity suggests small vessel disease. The ventricular system is unremarkable. The basal cisterns are patent. No extra-axial collections are present. There are no findings to suggest acute dural sinus thrombosis or acute territorial infarct. No significant calvarial abnormalities are present. Visualized portions of the sinuses and mastoid air cells are clear. IMPRESSION: 1. No acute intracranial findings. 2. No acute calvarial fracture. ACT 112: Negative or not required by law. Electronically signed by: Mike Gifford M.D. 12/14/2021 6:47 AM Hip X-Ray 12/15/21 15:30 FL hip LT 2-3V CLINICAL HISTORY: LT TROCH NAIL TECHNIQUE: 4 views were obtained with the C-arm in the OR with the above procedure. Total fluoroscopy time was 107.7 seconds. Total skin dose was 20.94 mGy. Comparison: None available at the time of this dictation. FINDINGS/IMPRESSION: Intraoperative images were obtained of left femoral trochanteric nail placement. Please correlate with intraoperative fluoroscopy and operative report. ACT 112: Negative or not required by law. Electronically signed by: Puneet Rose M.D. 12/15/2021 5:52 PM Hospital Course (1) Confusion: Mr. Mandujano is a 66 yo M with a history of COPD, HTN, BPH, MDD who presented following a fall down 2 icy steps, resulting in closed L hip fracture. He is s/p surgery on 12/15/21. See facility PCP within 1 week. Follow up w/ regular PCP after leaving SNF. Closed fracture of left hip - L hip fracture with impaction and angulation - s/p femoral nail 12/15/21 - pain control w/ PRN tylenol an PRN oxycodone (escript will be sent separately) for severe pain Please call [facility] at [phone] to schedule a follow up appointment 10-14 days from the date of your surgery date with Dr Blum or Gordy SOTO Confusion - resolved - reported by ; she noted that pt has had decreased energy, increased confusion, and has fallen over the last couple days + stated that this is consistent with prior UTIs. - pt does not appear confused at this time - Unremarkable Head CT w/o contrast, Chest X-Ray - Urine cx with more than 3 organism. abx d/c'ed. Cough, mild - flutter valve PRN Acute blood loss anemia - tachycardia noted - w/ downtrending H/H to Hb of 8.0 and lightheadedness; transfused 1u prbc on 12/18/21 w/ improvement. Hb stable 9.8 on day of dispo. - has h/o orthostasis. - recheck cbc in 1 week Dizziness - pt reports 2wk hx of dizziness upon standing up - unable to assess at this point in the setting of L hip fracture - Unremarkable. EKG, Head CT w/o contrast, Chest X-Ray - suspecting for orthostatic etiology; consider exacerbation by Olanzapine, Perphenazine, infection. - report of pt taking Tamsulosin, however pt reports he has not been taking this medication for some time. Vitamin D deficiency - Vitamin D with 2000units daily COPD - continue Symbicort, home inhaler - added albuterol inhaler PRN Hypertension - stable, continue Losartan BPH - not currently on medications - previously was on Finasteride and Tamsulosin, unsure why it was stopped; potentially related to dizziness episode. Major depressive disorder - continue home meds (olanzapine, fluoxetine, Wellbutrin, perphenazine) Patient's code status this admission was DNR/DNI Dispo: [facility] on 12/20/21 (2) MDD (major depressive disorder): (3) COPD (chronic obstructive pulmonary disease): (4) Closed fracture of left hip: (5) Fall: (6) Encounter for pre-operative examination: (7) High blood pressure: (8) BPH without urinary obstruction: Total Time Total Time Spent Total Time Spent (In Minutes): <30 Discharge Plan Discharge Items Patient Disposition: Transfer Intermediate Fac Reason For Visit: LEFT HIP FRACTURE Discharge Diagnosis: left hip fracture Activity: Per Instructions section Weightbearing: Left partial Non-emergency contact: Primary Care Provider and Surgeon Call non-emergency contact if: you have any medication questions, your symptoms worsen, you have a fever, your wound has increased redness and your wound has increased drainage Follow-up/Referrals: Baron Vidal [Primary Care Provider] - Solomon Blum M.D. [Physician] - (f/u in 10-14 days after hosp discharge ) Diet: Heart Healthy Addtl Attending Provider Instructions: Mr. Mandujano is a 66 yo M with a history of COPD, HTN, BPH, MDD who presented following a fall down 2 icy steps, resulting in closed L hip fracture. He is s/p surgery on 12/15/21. See facility PCP within 1 week. Follow up w/ regular PCP after leaving SNF. Closed fracture of left hip - L hip fracture with impaction and angulation - s/p femoral nail 12/15/21 - pain control w/ PRN tylenol an PRN oxycodone (escript will be sent separately) for severe pain Please call [facility] at [phone] to schedule a follow up appointment 10-14 days from the date of your surgery date with Dr Blum or Gordy OSTO Confusion - resolved - reported by ; she noted that pt has had decreased energy, increased confusion, and has fallen over the last couple days + stated that this is consistent with prior UTIs. - pt does not appear confused at this time - Unremarkable Head CT w/o contrast, Chest X-Ray - Urine cx with more than 3 organism. abx d/c'ed. Cough, mild - flutter valve PRN Acute blood loss anemia - tachycardia noted - w/ downtrending H/H to Hb of 8.0 and lightheadedness; transfused 1u prbc on 12/18/21 w/ improvement. Hb stable 9.8 on day of dispo. - has h/o orthostasis. - recheck cbc in 1 week Dizziness - pt reports 2wk hx of dizziness upon standing up - unable to assess at this point in the setting of L hip fracture - Unremarkable. EKG, Head CT w/o contrast, Chest X-Ray - suspecting for orthostatic etiology; consider exacerbation by Olanzapine, Perphenazine, infection. - report of pt taking Tamsulosin, however pt reports he has not been taking this medication for some time. Vitamin D deficiency - Vitamin D with 2000units daily COPD - continue Symbicort, home inhaler - added albuterol inhaler PRN Hypertension - stable, continue Losartan BPH - not currently on medications - previously was on Finasteride and Tamsulosin, unsure why it was stopped; potentially related to dizziness episode. Major depressive disorder - continue home meds (olanzapine, fluoxetine, Wellbutrin, perphenazine) Patient's code status this admission was DNR/DNI Dispo: [facility] on 12/20/21 Add [employer] Provider Instructions: [facility] DISCHARGE INSTRUCTIONS: HIP FRACTURE SELF CARE INSTRUCTIONS: A. You are to ambulate with a walker or crutches for approximately 6 weeks. B. You are TOE TOUCH WEIGHT BEARING on your operative lower extremity for at least 6 weeks. C. Wear low heeled shoes with non-slip soles D. Be sure that your floors are free of things that could trip you throw rugs, electrical cords, and small objects. Avoid wet and waxed floors, especially with crutches/walker/cane. E. Try to walk several times a day with rest periods between. F. You may shower 48 hours after surgery and get the incision area wet, but DO NOT soak or submerge incision area in water. (No baths, swimming pools, hot tubs) If incision is leaking through the dressing, please call the office . H. Do NOT apply soap or any ointment/lotions directly over incision. I. You may use ice as needed to operative site. SPECIAL CARE INSTRUCTIONS: VERY IMPORTANT TO READ AND REVIEW A. You may be at risk for phlebitis or blood clots. a. Wear surgical stockings (LUKASZ hose) for 2 weeks after surgery to improve circulation and reduce swelling. b. Take your blood thinner as outlined by primary medical team. B. There are a few signs you need to watch for after you are home. Call [facility] at [phone] if you experience any of the following: a. If you have a temperature of 101 degrees or higher. b. Sudden increase in pain in your hip not relieved by rest or pain medication. c. Any fluid or drainage from the incision; redness of the incision. d. Shortness of breath or chest pain. B. Please call [facility] at [phone] if you have any questions or concerns about your operation or recovery. C. Call your physician if: a. Temperature is greater than 101 degrees (F). b. Pain is not relieved by prescribed pain medications. c. Increase drainage or redness from incision. d. Unanswered questions or concerns. D. Pain Medication: a. You will be prescribed pain medication upon discharge that should last till your first post-operative appointment. b. If you experience nausea and/or skin rash, dis continue this medication and contact our office for an alternative medication. c. Caution- narcotic pain medication can cause constipation. FOLLOW UP VISIT: Please call [facility] at [phone] to schedule a follow u p appointment 10-14 days from the date of your surgery date with Dr Blum or Gordy SOTO Pending Studies at Discharge: No Stand-Alone Forms: My [facility] Skilled Items Patient informed of condition?: Yes DNR: Yes Discharge Level of Care: Skilled Communicable Disease: No Discharge Prognosis: Stable Lines: None Urinary Catheter: No Medications and DC Order Prescriptions: New albuterol sulfate [Ventolin HFA] 90 mcg/actuation HFA aerosol inhaler 2 inh inhalation Q6H PRN (Reason: shortness of breath or wheezing) Qty: 6.7 RF: 1 (DME) Spacer for Inhaler Misc See Rx Instructions .Route Qty: 1 RF: 0 cholecalciferol (vitamin D3) 25 mcg (1,000 unit) Capsule 2,000 unit PO QAM 21 Days Qty: 21 RF: 1 acetaminophen [Tylenol] 325 mg tablet 650 mg PO Q6H PRN (Reason: fever or pain) Qty: 90 RF: 1 Continued olanzapine 10 mg tablet 10 mg PO HS 21 Days Qty: 21 RF: 1 fluoxetine 20 mg capsule 60 mg PO DAILY 21 Days Qty: 21 RF: 1 perphenazine 16 mg tablet 8 mg PO HS 21 Days Qty: 21 RF: 1 Changed losartan 25 mg tablet 25 mg PO DAILY 21 Days Qty: 21 RF: 1 bupropion HCl 300 mg tablet extended release 24 hr 300 mg PO DAILY 21 Days Qty: 21 RF: 1 budesonide-formoterol [Symbicort] 160-4.5 mcg/actuation HFA aerosol inhaler 2 puff INHALATION BID Qty: 10.2 RF: 1 Discontinued losartan 25 mg Tablet 0 mg PO DAILY RF: 0 bupropion HCl 300 mg tablet extended release 24 hr 300 mg PO QAM RF: 0 budesonide-formoterol [Symbicort] 160-4.5 mcg/actuation HFA aerosol inhaler 2 puff INHALATION BID RF: 0 Discharge Orders: Discharge Order (Routine); Ordered 12/20/21 Ordered By: Bentley Gomez/Other Patient Handouts: DVT Post Op Prevention Admission Data Admit Date/Time: 12/13/21 23:02 Attending Provider: Wagner Rodrigez Admit Provider: Wagner Clark Primary Care Provider: Baron Vidal Other Providers: Taylor Terrell,Jordy ; Pearl Daly ; Jones Noe ; Bee Ramos Other Interventions: Discharge Summary Assessment (RN) Last Done: 12/20/21 15:44 Supervising Physician Co-Signing Physician Notes I personally examined the patient and verified all casillas points of history and exam, discussed case, and agree with decision making with Dr Devine sleeping comfortably. informed that insurance had denied SNF. called for peer to peer - when physician called back they noted denial due to not seeing last 2 days PT notes. when reviewing pt status they then said they would approve. vitals noted nad heent nc at mmm breathing unlabored no accessory muscles good effort skin no rashes no pallor or icterus hip fx -PT/OT, pain control, outpt bone health w/u, for SNF/rehab emphasis; strange that insurance would deny and ask for peer to peer when they then noted all they needed was essentially updated status and PT notes. at any rate - approved. acute blood loss anemia -related to above -transfused 1 unit PRBC. Hgb more acceptable SNF/rehab emphasis otherwise as above Resident Activity Tracking Resident Involvement: Resident Care Provided Care Provided: Adult Hospital Medicine
[2021-12-20 06:40] LABS: Hematocrit (blood only) 28.7 % (42-52); Hemoglobin 9.8 g/dL (14.0-18.0); Mean Corpuscular Hemoglobin 31.6 pg (25-34); Mean Corpuscular Hgb Conc 34.1 g/dL (32-36); Mean Corpuscular Volume 92.6 fL (80-100); Platelet Count 391 K/uL (130-400); RDW Coefficient of Variation 15.2 % (11.5-14.5); RDW Standard Deviation 49.3 fL (36.4-46.3); White Blood Count 11.73 K/uL (4.8-10.8)
[2021-12-20] MEDS: SODIUM CHLOR 7% 4 ML NEB NEB SCH (07:20)
[2021-12-20] MEDS: ALBUT/IPRATROP 3MG/0.5MG NEB 3 ML VIAL INH PRN (07:30)
[2021-12-20] MEDS: FLUTICASONE/VILANTEROL 200/25MCG 14 PUFFS/INHALER INH SCH (08:33)
[2021-12-20] MEDS: CHOLECALCIFEROL 1,000 UNITS 25 MCG TAB PO SCH (08:33)
[2021-12-20] MEDS: MULTIVITAMIN TAB PO SCH (08:33)
[2021-12-20] MEDS: ASPIRIN 81 MG ECTAB PO SCH (08:33)
[2021-12-20] MEDS: LOSARTAN POTASSIUM 25 MG TAB PO SCH (08:33)
[2021-12-20] MEDS: FLUoxetine HCL 20 MG CAP PO SCH (08:33)
[2021-12-20] MEDS: DOCUSATE SODIUM 100 MG CAP PO SCH (08:33)
[2021-12-20] MEDS: buPROPion XL 300 MG TABCR PO SCH (08:34)
[2021-12-20] MEDS ORDERED: LEVALBUTEROL 0.31MG/3 ML VIAL NEB STA (08:43)
[2021-12-20] MEDS: oxyCODONE HCL IR 5 MG TAB (IMMEDIATE RELEASE) PO PRN ×2 (09:58→16:06)
--- NOTE | 2021-12-20 18:54 | Billing Data ---
Date of Service December 20, 2021 Coding Level of Care Code D/C DAY MANAGEMENT <30 MINS
== END 2021-12-20 16:11 | DRG 481 ==
LOC: ED 21:24 → 3W 23:02 → SUATTDRO 23:02 → 3W 12-14 00:19